=== PATIENT | female | born 1990 | race Caucasian/White ===

== ENCOUNTER 2016-10-07 15:23 | Inpatient (IN) | payer OTHER ==
[2016-10-07 15:44] LABS: BASOPHILS % 0.6 (0.0-1.5); EOSINOPHILS % 2.8 % (0.0-6.8); MEAN CORPUSCULAR HEMOGLOBIN 31.2 pg (28.0-34.0); MEAN CORPUSCULAR VOLUME 90.3 fl (80.0-100.0); MONOCYTES % 6.6 % (0.0-11.0); NEUTROPHILS # 5.7 # k/uL (1.4-7.7)
[2016-10-07] MEDS ORDERED: 0.9 % SODIUM CHLORIDE 1,000 ML IV SCH (16:00)
[2016-10-07 16:01] LABS: eGFR (African) > 60; eGFR (Non-African) > 60
[2016-10-07 16:09] LABS: APPEARANCE,URINE Clear (CLEAR); COLOR,URINE Yellow (YELLOW); OCCULT BLOOD,URINE 2+ (NEGATIVE); PH URINE 6.5 (5.0 - 8.0)
[2016-10-07 16:11] LABS: AMPHETAMINE NEGATIVE ng/mL (<1000); BARBITURATES NEGATIVE ng/mL (<300); CANNABINOIDS NEGATIVE ng/mL (< 50); COCAINE NEGATIVE ng/mL (<150); METHAMPHETAMINE NEGATIVE ng/mL (<1000); METHYLENEDIOXYMETHAMPHETAMINE NEGATIVE ng/mL (<500); OPIATES NEGATIVE ng/mL (<300)
[2016-10-07] MEDS ORDERED: 0.9 % SODIUM CHLORIDE 1,000 ML IV ONE ×2 (16:36→19:30)
[2016-10-07] MEDS ORDERED: LEVOFLOXACIN 500MG/D5W 100ML 500 MG in PREMIX BAG 1 BAG IV ONE (17:53)
[2016-10-07] MEDS ORDERED: IPRATROPIUM/ALBUTEROL SULFATE 3 ML AMPUL.NEB NEB ONE (17:53)
[2016-10-07] MEDS ORDERED: LEVOFLOXACIN 500MG/D5W 100ML 100 ML IV ONE (18:14)
--- NOTE | 2016-10-07 18:59 | Diagnostic Imaging Report ---
MARK ROJAS [facility] [address] [facility].[address] [address] Report Submission Date: Oct 07, 2016 5:23:00 PM CDT Patient Study Name: ALONDRA HAIRSTON Date: Oct 07, 2016 5:02:09 PM CDT Modality Type: CR Gender: F Description: CHEST : 88 Institution: [facility] Physician: MARK ROJAS Examination: Portable chest History: Chest discomfort Findings: Single view of the chest demonstrates a hypoventilated inspiratory effort. Increased parenchymal haziness involving the lower lung quinonez. Osseous structures appropriate for age. Impression: Bibasilar hazy infiltrates. Recommend obtaining formal PA and lateral film to better evaluate lung quinonez. Electronically signed on Oct 07, 2016 5:23:00 PM CDT by: Jacob DEL CID
--- NOTE | 2016-10-07 19:00 | Diagnostic Imaging Report ---
MARK ROJAS [facility] [address] [facility] [address] [place], [place]. [address] Report Submission Date: Oct 07, 2016 5:27:36 PM CDT Patient Study Name: ALONDRA HAIRSTON Date: Oct 07, 2016 4:51:08 PM CDT Modality Type: CT\SR Gender: F Description: CT BRAIN W/O CONTRAST : 88 Institution: [facility] Physician: MARK ROJAS Examination: CT head without contrast History: Syncope Comparison exam: None available Technique: Noncontrast head CT protocol. Findings: Exam attenuation limits sensitivity. Ventricles mildly prominent for patient age. Cerebrocerebellar parenchyma demonstrates normal attenuation. No evidence for parenchymal hemorrhage. No evidence for mass or mass effect. No midline shift. No extra axial fluid collections. Partial visualization of the paranasal sinuses, mastoid air cells, orbits, skull and scalp without gross irregularity. Streak artifact from dental hardware. Impression: Mildly prominent ventricles for age. Correlate with any underlying medical condition and previous examinations. No obvious acute parenchymal process though exam attenuation limits sensitivity. No obvious hemorrhage. Electronically signed on Oct 07, 2016 5:27:36 PM CDT by: Jacob DEL CID
--- NOTE | 2016-10-07 19:01 | Diagnostic Imaging Report ---
MARK ROJAS [facility] [address] [facility] [address] [place], [place]. [address] Report Submission Date: Oct 07, 2016 5:36:42 PM CDT Patient Study Name: ALONDRA HAIRSTON Date: Oct 07, 2016 4:55:44 PM CDT Modality Type: CT\SR Gender: F Description: CT ABD & PELVIS W/O CO : 88 Institution: [facility] Physician: MARK ROJAS Examination: CT Abdomen/pelvis History: Right flank discomfort Comparison exams: None available Technique: CT Abdomen/pelvis without contrast protocol. Findings: Renal cortical margins are symmetric. No cortical or calyceal calcification. Ureters described a normal course through the abdomen and pelvis. No abnormal dilation. No central calcifications. Ureterovesicular junctions are within normal limits. Pelvic phleboliths. Liver, spleen, adrenals, and pancreas are without gross irregularity. Gallbladder not well visualized: presumably contracted. Bowel unopacified limiting evaluation. No mesenteric inflammatory changes or free fluid. Significant stool throughout the large bowel. No small bowel dilation. Possible appendix identified within the right lower quadrant, no adjacent inflammation. Sensitivity is reduced due to patient motion and lack of oral contrast. Osseous structures demonstrate degenerative changes. Lung bases demonstrate bibasilar hazy infiltrates. No effusion Impression: No nephro or ureterolithiasis. Remainder of the exam is limited due to patient motion and lack of IV and oral contrast. No obvious bowel dilation or mesenteric inflammatory process. Stool throughout the large bowel - may represent constipation. Bibasilar lung base infiltrates Electronically signed on Oct 07, 2016 5:36:42 PM CDT by: Jacob DEL CID
--- NOTE | 2016-10-07 19:09 | History and Physical Report ---
History of Present Illnes - History of Present Illness Reason for Visit: "Out of it" History of Present Illness: Patient was brought to ER by her Care Home Staff after an episode of "being out of it". Seemed unresponsive. In the ER found to be hypoxic with bilateral infiltrates. Patient tells me she has felt fine the past few days and has no complaints. Patient has MR and is somewhat unreliable. Spends most of the days watching TV. CT of head and abdomen/pelvis were negative in the ER. - Past Medical History Pulmonary: Asthma [employer]: Other (Tremor) Gastrointestinal: GERD Psych: Anxiety, Bipolar, Depression, Other (ADHD; PTSD; Mental retardation; Psychosis; Personality D/O) Renal/: Other (incontinence) Endocrine: Hypothyroidism - Past Surgical History Past Surgical History: None - Past Social History Smoke: No Alcohol: None Lives: Other ([facility] in [facility]) - Health Maintenance Health Maintenance: Influenza Vaccine Influenza Vaccine: Current for this Influenza Season Pneumonia Vaccine: No Resuscitation Status: Full Review of Systems - Review of Systems Constitutional: Fever. negative: Weakness Eyes: negative: pain ENT: negative: Ear Pain, Nose Discharge, Mouth Pain Respiratory: negative: Cough, Shortness of Breath Cardiovascular: negative: Chest Pain Gastrointestinal: negative: Nausea, Vomiting, Abdominal Pain, Constipation Genitourinary: negative: Dysuria Musculoskeletal: negative: Neck Pain Skin: negative: Rash Neurological: negative: Weakness - Medications/Allergies Allergies/Adverse Reactions: Allergies Allergy/AdvReac Type Severity Reaction Status Date / Time bee venom (honey bee) Allergy Verified 10/07/16 15:54 cefaclor [From Ceclor] Allergy Verified 10/07/16 15:53 Penicillins Allergy Verified 10/07/16 15:54 shellfish derived Allergy Verified 10/07/16 15:54 Home Medications: Home Medications Albuterol Sulfate [Ventolin] 2 puff IN QID PRN 10/07/16 Benztropine Mesylate [Cogentin] 1 mg PO D 10/07/16 Citalopram Hydrobromide [Celexa] 10 mg PO DAILY 10/07/16 Desmopressin Acetate [Ddavp] 0.1 mg PO DAILY 10/07/16 Divalproex Sodium [Depakote] 1,500 mg PO HS 10/07/16 Docusate Sodium [Colace] 100 mg PO DAILY PRN 10/07/16 Epinephrine [Epipen 2-Sonido] 0.3 mg SQ 1T PRN 10/07/16 Levothyroxine Sodium [Synthroid] 125 mcg PO DAILY 10/07/16 Medroxyprogesterone Acetate [Depo-Provera] 150 mg IM Q3M 10/07/16 Multivits W-Min/Ferrous Gluc [Centrum Multivit-Mineral Liq] 1 tab PO DAILY 10/07 Olanzapine [Zyprexa] 20 mg PO HS 10/07/16 Oxybutynin Chloride [Ditropan] 1 tab PO DAILY PRN 10/07/16 Polyethylene Glycol 3350 [Miralax] 17 gm PO DAILY 10/07/16 Ranitidine HCl [Zantac] 150 mg PO DAILY 10/07/16 Risperidone [Risperdal] 3 mg PO BID 10/07/16 Current Inpatient Medications: Current Inpatient Medications Budesonide (Pulmicort) 0.5 mg NEB BID [facility] Sodium Chloride (Normal Saline) 1,000 mls @ 1,000 mls/hr IV .Q1H WANDY Last Admin: 10/07/16 16:20 Dose: 1,000 mls/hr Exam - Exam Vital Signs: Vital Signs (72 hours) 10/07/16 18:36 Temperature 99.9 F H Pulse Rate [ 95 H Pulse ox] Respiratory 20 Rate Blood Pressure 118/82 [Left Arm] O2 Sat by Pulse 95 Oximetry General: Alert, Oriented to Person, Oriented to Place, Oriented to Time, Cooperative, No acute distress HEENT: Atraumatic, PERRLA, EOMI, Nose Mucous membr. moist/Mccaskill. No: Mouth Mucous membr. moist/Mccaskill Neck: Normal Range of Motion Lungs: Rhonchi Cardiovascular: Regular rate Abdomen: Normal bowel sounds, Soft, No tenderness Integumentary: Normal Extremities: No edema Neurological: Normal gait, Normal speech, Strength Equal Bilat, Cranial nerves 3 -12 NL Psych/Mental Status: No: Mental status NL, Mood NL, Appropriate Affect, Intact Judgment Assessment/Plan - Assessment/Plan (1) Bilateral pneumonia Status: Acute Current Visit: Yes Qualifiers: Pneumonia type: due to unspecified organism Lung location: lower lobe of lung Qualified Code(s): J18.9 - Pneumonia, unspecified organism Plan: Blood cultures pending. Admit for IV antibiotics with rocephin and zithromax. Duonebs and O2 to keep SATS > 90%. (2) Mental retardation Status: Acute Current Visit: Yes Plan: STable. (3) Hypoxia Status: Acute Current Visit: Yes (4) Mental status change Status: Acute Current Visit: Yes Qualifiers: Altered mental status type: transient alteration of awareness Qualified Code(s): R40.4 - Transient alteration of awareness Plan: Suspect due to illness. Watch closely. (5) Asthma Status: Acute Current Visit: Yes Qualifiers: Asthma severity: mild intermittent Asthma complication type: uncomplicated Qualified Code(s): J45.20 - Mild intermittent asthma, uncomplicated Plan: Only uses albuterol prn. No wheezing on exam (had duoneb in ER). Do scheduled duonebs. VTE Assessment - RISK FACTOR SCORE VTE RISK FACTOR SCORES: ACUTE INFECTION OTHER THEN SEPSIS, ANTICIPATED BED CONFINEMENT OR IMMOBILIZATION > 24 HOURS - RISK VTE MODERATE RISK: SCORE OF 2 (RISK PROXIMAL DVT 2-4%) PROPHYAXIS NEEDED
[2016-10-07] MEDS ORDERED: DOCUSATE SODIUM 100 MG CAPSULE PO PRN (19:10)
[2016-10-07] MEDS ORDERED: IPRATROPIUM/ALBUTEROL SULFATE 3 ML AMPUL.NEB NEB PRN (19:10)
[2016-10-07] MEDS ORDERED: OXYBUTYNIN CHLORIDE 5 MG TABLET PO PRN (19:10)
[2016-10-07] MEDS ORDERED: AZITHROMYCIN 500 MG VIAL IV ONE (19:30)
[2016-10-07] MEDS: 0.9 % SODIUM CHLORIDE 1,000 ML IV SCH (19:30)
[2016-10-07] MEDS ORDERED: 0.9 % SODIUM CHLORIDE 250 ML IV ONE (19:30)
[2016-10-07] MEDS: AZITHROMYCIN 500 MG in 0.9 % SODIUM CHLORIDE 250 ML IV SCH (19:40)
[2016-10-07] MEDS ORDERED: LEVOTHYROXINE SODIUM 25 MCG TABLET ONE (19:50)
[2016-10-07] MEDS: ENOXAPARIN SODIUM 40 MG/0.4 ML DISP.SYRIN SQ SCH (20:48)
[2016-10-07] MEDS ORDERED: BUDESONIDE 0.5MG/2ML AMPUL.NEB NEB SCH (21:00)
--- NOTE | 2016-10-07 21:07 | ED Physician Documentation ---
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, has been soa at facility Onset: minutes (30) Duration: sudden onset Last known Well Date: 10/07/16 Last Known Well Time: 15:25 Last known Well Code/Unknown Code: Unknown Character of Altered Mental Status: unresponsive, other (staring) Context: senior living resident Cognition is Usually: alert, oriented x3 Associated Symptoms: none Further Comments: no - ROS EYES/ENT: none CVS/RESP: none GI/: none MS/SKIN/LYMPH: none NEURO/PSYCH: none - PAST HX Past History: other (mr) Other History: other (depression, gerd) Immunizations: referred to PCP Allergies/Adverse Reactions: Allergies Allergy/AdvReac Type Severity Reaction Status Date / Time bee venom (honey bee) Allergy Verified 10/07/16 15:54 cefaclor [From Ceclor] Allergy Verified 10/07/16 15:53 Penicillins Allergy Verified 10/07/16 15:54 shellfish derived Allergy Verified 10/07/16 15:54 Home Medications: Ambulatory Orders Medication Instructions Recorded Albuterol Sulfate [Ventolin] 2 puff IN QID PRN 10/07/16 Benztropine Mesylate [Cogentin] 1 mg PO D 10/07/16 Citalopram Hydrobromide [Celexa] 10 mg PO DAILY 10/07/16 Desmopressin Acetate [Ddavp] 0.1 mg PO DAILY 10/07/16 Divalproex Sodium [Depakote] 1,500 mg PO HS 10/07/16 Docusate Sodium [Colace] 100 mg PO DAILY PRN 10/07/16 Epinephrine [Epipen 2-Sonido] 0.3 mg SQ 1T PRN 10/07/16 Levothyroxine Sodium [Synthroid] 125 mcg PO DAILY 10/07/16 Medroxyprogesterone Acetate 150 mg IM Q3M 10/07/16 [Depo-Provera] Multivits W-Min/Ferrous Gluc 1 tab PO DAILY 10/07/16 [Centrum Multivit-Mineral Liq] Olanzapine [Zyprexa] 20 mg PO HS 10/07/16 Oxybutynin Chloride [Ditropan] 1 tab PO DAILY PRN 10/07/16 Polyethylene Glycol 3350 [Miralax] 17 gm PO DAILY 10/07/16 Ranitidine HCl [Zantac] 150 mg PO DAILY 10/07/16 Risperidone [Risperdal] 3 mg PO BID 10/07/16 - SOCIAL HX Smoking History: non-smoker Alcohol Use: none Drug Use: none - FAMILY HX Family History: no significant history - VITAL SIGNS Vital Signs: Vital Signs Temp Pulse Resp BP Pulse Ox 99.9 F H 95 H 20 118/82 95 10/07/16 18:36 10/07/16 18:36 10/07/16 18:36 10/07/16 18:36 10/07/16 18:36 - REVIEWED ASSESSMENTS Nursing Assessment Reviewed: Yes Vitals Reviewed: Yes Progress - Results/Orders Results/Orders: cbc, cmp, amylase, ua, uds, hcg, cxr, ct abd ordered - Progress Progress: pt. given 1 liter ns, blood cults taken and 500 mg levaquin give ivpb Critical Care Note - Critical Care Note Total Time (mins): 0 ED Results Lab/Radiology - Lab Results Lab Results: Lab Results 10/07/16 10/07/16 10/07/16 16:35 16:05 16:05 WBC RBC Hgb Hct MCV MCH MCHC RDW Plt Count Neut % (Auto) Lymph % (Auto) [place] % (Auto) Eos % (Auto) Baso % (Auto) Neut # (Auto) Lymph # (Auto) [place] # (Auto) Eos # (Auto) Baso # (Auto) Reactive Lymphs % Reactive Lymphs # Sodium Potassium Chloride Carbon Dioxide BUN Creatinine Estimated Creat Clear Est GFR ( Amer) Est GFR (Non-Af Amer) Glucose Calcium Total Bilirubin AST ALT Alkaline Phosphatase Total Protein Albumin Amylase Urine Color Yellow (YELLOW) Urine Appearance Clear (CLEAR) Urine pH 6.5 (5.0 - 8.0) Ur Specific [place] >=1.030 H (1.010-1.030) Urine Protein Negative mg/dL mg/dL (NEGATIVE) Urine Ketones Negative mg/dL mg/dL (NEGATIVE) Urine Occult Blood 2+ H (NEGATIVE) Urine Nitrite Positive (NEGATIVE) Urine Bilirubin Negative (NEGATIVE) Urine Urobilinogen 1.0 Eu Eu (0.2-1.0) Ur Leukocyte Esterase 1+ H (NEGATIVE) Urine Glucose Negative mg/dL mg/dL (NEGATIVE) Urine HCG, Qual Negative (NEGATIVE) Morphine Screen Negative ng/mL ng/mL (<300) Oxycodone Screen Negative ng/mL ng/mL (<100) Methadone Screen Negative ng/mL ng/mL (<300) POC Urine Barbiturates Negative ng/mL ng/mL (<300) Tricyclic Antidepress Negative ng/mL ng/mL (<300) Phencyclidine Screen Negative ng/mL ng/mL (<25) Amphetamines Screen Negative ng/mL ng/mL (<1000) POC Ur Methamphetamine Negative ng/mL ng/mL (<1000) MDMA Negative ng/mL ng/mL (<500) Benzodiazepines Screen Negative ng/mL ng/mL (<300) Cocaine Screen Negative ng/mL ng/mL (<150) U Cannabinoids Screen Negative ng/mL ng/mL (< 50) 10/07/16 10/07/16 15:40 15:40 WBC 9.60 K/ul K/ul (4.00-12.00) RBC 4.50 M/ul M/ul (3.90-5.20) Hgb 14.0 g/dL g/dL (12.0-16.0) Hct 40.6 % % (34.5-46.5) MCV 90.3 fl fl (80.0-100.0) MCH 31.2 pg pg (28.0-34.0) MCHC 34.5 g/dL g/dL (30.0-36.0) RDW 13.9 % % (11.3-14.3) Plt Count 141 K/mm3 K/mm3 (130-400) Neut % (Auto) 58.9 % % (39.0-79.0) Lymph % (Auto) 29.6 % % (16.0-50.0) [place] % (Auto) 6.6 % % (0.0-11.0) Eos % (Auto) 2.8 % % (0.0-6.8) Baso % (Auto) 0.6 (0.0-1.5) Neut # (Auto) 5.7 # k/uL # k/uL (1.4-7.7) Lymph # (Auto) 2.8 # k/uL # k/uL (0.6-4.0) [place] # (Auto) 0.6 # k/uL # k/uL (0.0-0.9) Eos # (Auto) 0.3 # k/uL # k/uL (0.0-0.6) Baso # (Auto) 0.1 # k/uL # k/uL (0.0-0.5) Reactive Lymphs % 1.5 % % (0.0-5.0) Reactive Lymphs # 0.1 # k/uL # k/uL (0.0-0.8) Sodium 136 mmol/L mmol/L (136-145) Potassium 3.7 mmol/L mmol/L (3.5-5.0) Chloride 102 mmol/L mmol/L (98-110) Carbon Dioxide 28 mmol/L mmol/L (20-32) BUN 11 mg/dL mg/dL (10-26) Creatinine 0.7 mg/dL mg/dL (0.4-1.5) Estimated Creat Clear 227 Est GFR ( Amer) > 60 (60 - ) Est GFR (Non-Af Amer) > 60 (60 - ) Glucose 112 mg/dL H mg/dL (70-99) Calcium 9.2 mg/dL mg/dL (8.5-10.5) Total Bilirubin 0.1 mg/dL L mg/dL (0.2-1.2) AST 18 U/L U/L (0-41) ALT 25 U/L U/L (0-45) Alkaline Phosphatase 64 U/L U/L (46-116) Total Protein 6.2 g/dL g/dL (6.0-8.5) Albumin 4.2 g/dL g/dL (3.0-5.5) Amylase 31 U/L U/L (20-104) Urine Color Urine Appearance Urine pH Ur Specific [place] Urine Protein Urine Ketones Urine Occult Blood Urine Nitrite Urine Bilirubin Urine Urobilinogen Ur Leukocyte Esterase Urine Glucose Urine HCG, Qual Morphine Screen Oxycodone Screen Methadone Screen POC Urine Barbiturates Tricyclic Antidepress Phencyclidine Screen Amphetamines Screen POC Ur Methamphetamine MDMA Benzodiazepines Screen Cocaine Screen U Cannabinoids Screen - Radiology Radiology Impressions: cxr shows bibasilar infiltrates, ct abd unremarkable - Orders Orders: ED Orders Category Date Time Status Activity as ordered D Care 10/07/16 19:10 Active Assess pulse oximetry Q4H Care 10/07/16 19:10 Active Continuous EKG monitoring Q1H Care 10/07/16 19:10 Active Document Bowel Movement Q8H Care 10/07/16 19:[address] Longoria NOW Care 10/07/16 19:10 Ordered Incentive Spirometry Assessmen Q4 Care 10/07/16 19:10 Active Inpatient Telemetry NOW Care 10/07/16 19:10 Ordered No VTE Prophylaxis Needed .Once Care 10/07/16 19:10 Active Obtain weight DAILY@0500 Care 10/07/16 19:[address] IV Lock 1T Care 10/07/16 15:39 Inactive Vital Signs Q4 Care 10/07/16 19:10 Active Regular Diet 10/07/16 Breakfast Ordered Regular Diet 10/07/16 Breakfast Ordered CHEST 1 VIEW [RAD] Routine Exams 10/07/16 Completed CHEST P.A.&LAT 2 VIEWS [RAD] Routine Exams 10/08/16 06:[address] ABD & PELVIS W/O CON Stat Exams 10/07/[address] BRAIN W/O CONTRAST Stat Exams 10/07/16 Completed AMYLASE Routine Lab 10/07/16 15:40 Completed BLOOD CULTURE Routine Lab 10/07/16 18:05 Received BMP Routine Lab 10/08/16 06:00 Ordered CBC/PLATELET/DIFF Routine Lab 10/07/16 15:40 Completed CBC/PLATELET/DIFF Routine Lab 10/08/16 06:00 Ordered CMP Routine Lab 10/07/16 15:40 Completed DRUG SCREEN URINE MEDICAL ONLY Routine Lab 10/07/16 16:05 Completed LACTIC ACID Routine Lab 10/07/16 18:05 Received URINALYSIS Routine Lab 10/07/16 16:05 Completed URINE CULTURE Routine Lab 10/07/16 16:05 Received URINE HCG Routine Lab 10/07/16 16:35 Completed 0.9 % Sodium Chloride [Normal Saline] 1,000 ml Med 10/07/16 16:00 Discontinued IV .Q1H 0.9 % Sodium Chloride [Normal Saline] 1,000 ml Med 10/07/16 19:10 Ordered IV Q10H Benztropine Mesylate [Cogentin] Med 10/08/16 09:00 Ordered 1 mg PO D Budesonide [Pulmicort] Med 10/07/16 21:00 Discontinued 0.5 mg NEB BID Citalopram Hydrobromide [Celexa] Med 10/08/16 09:00 Ordered 10 mg PO DAILY Desmopressin Acetate [Ddavp] Med 10/08/16 09:00 Ordered 0.1 mg PO DAILY Docusate Sodium [Colace] Med 10/07/16 19:10 Ordered 100 mg PO DAILY PRN Famotidine [Pepcid] Med 10/08/16 07:00 Ordered 20 mg PO 0700 Ipratropium/Albuterol Sulfate [Duoneb] Med 10/07/16 17:53 Discontinued 3 ml NEB NOW ONE Ipratropium/Albuterol Sulfate [Duoneb] Med 10/07/16 19:10 Ordered 3 ml NEB Q4 PRN Levofloxacin 500Mg/D5w 100Ml [Levaquin] 100 ml Med 10/07/16 18:14 Discontinued IV .STK-MED Levofloxacin 500Mg/D5w 100Ml [Levaquin] 500 mg Med 10/08/16 09:00 Ordered Premix Bag [Premix Fluid] 1 bag IV DAILY Levofloxacin 500Mg/D5w 100Ml [Levaquin] 500 mg Med 10/07/16 17:53 Discontinued Premix Bag [Premix Fluid] 1 bag IV NOW Levothyroxine Sodium [Synthroid] Med 10/08/16 07:00 Ordered 125 mcg PO 0700 Multivitamin [Tab-A-Ronaldo] Med 10/08/16 09:00 Ordered 1 each PO DAILY OLANZapine [Zyprexa] Med 10/07/16 21:00 Ordered 2.5 mg PO HS Oxybutynin Chloride [Ditropan] Med 10/07/16 19:10 Ordered DOSE mg PO DAILY PRN Polyethylene Glycol 3350 [Miralax] Med 10/08/16 09:00 Ordered 17 gm PO DAILY Valproic Acid (As Sodium Salt) [Depakene] Med 10/07/16 21:00 Ordered 1,500 mg PO PM risperiDONE [Risperdal] Med 10/07/16 21:00 Ordered 3 mg PO BID Resuscitation Status Routine Oth 10/07/16 19:10 Ordered Oxygen Daily Oxygen 10/07/16 19:10 Ordered EKG WITH COMPARISON Routine Ther 10/07/16 Stop Req Transfer Routine Transfer 10/07/16 Completed Altered Mental Status Physical - Physical Exam General Appearance: alert, mild distress Neuro/Psych: none alert, oriented x3, no evidence of acute CVA, mood/affect nml nml as tested Cerebellar Exam: nml as tested Peripheral Exam: motor nml, sensation nml, reflexes nml HEENT: ADWOA, EOM's intact, no apparent trauma, ENT inspection nml, oropharynx nml Neck: normal inspection, thyroid normal, supple Respiratory: no resp distress, chest non-tender, rales (bases) CVS: reg rate & rhythm, heart sounds normal, equal pulses, no murmur, no gallop , PMI nml, no JVD Abdomen: non-tender, no organomegaly, nml bowel sounds, no distention Skin: warm/dry, normal color Extremities: non-tender, normal range of motion Discharge Clincal Impression: Pneumonia Qualifiers: Pneumonia type: due to unspecified organism Laterality: bilateral Lung location : lower lobe of lung Qualified Code(s): J18.9 - Pneumonia, unspecified organism Home Medications: Ambulatory Orders Albuterol Sulfate [Ventolin] 2 puff IN QID PRN 10/07/16 Benztropine Mesylate [Cogentin] 1 mg PO D 10/07/16 Citalopram Hydrobromide [Celexa] 10 mg PO DAILY 10/07/16 Desmopressin Acetate [Ddavp] 0.1 mg PO DAILY 10/07/16 Divalproex Sodium [Depakote] 1,500 mg PO HS 10/07/16 Docusate Sodium [Colace] 100 mg PO DAILY PRN 10/07/16 Epinephrine [Epipen 2-Sonido] 0.3 mg SQ 1T PRN 10/07/16 Levothyroxine Sodium [Synthroid] 125 mcg PO DAILY 10/07/16 Medroxyprogesterone Acetate [Depo-Provera] 150 mg IM Q3M 10/07/16 Multivits W-Min/Ferrous Gluc [Centrum Multivit-Mineral Liq] 1 tab PO DAILY 10/07 Olanzapine [Zyprexa] 20 mg PO HS 10/07/16 Oxybutynin Chloride [Ditropan] 1 tab PO DAILY PRN 10/07/16 Polyethylene Glycol 3350 [Miralax] 17 gm PO DAILY 10/07/16 Ranitidine HCl [Zantac] 150 mg PO DAILY 10/07/16 Risperidone [Risperdal] 3 mg PO BID 10/07/16 Comments: case discussed with Dr. Longoria who accepts admission Condition: Stable Disposition: 09 ADMITTED INPATIENT Decision to Admit: [id number] Decision Time: 18:35
[2016-10-07 21:24] VITALS: BMI 47.2
[2016-10-07] MEDS: VALPROIC ACID (AS SODIUM SALT) 250 MG/5 ML BOTTLE PO SCH (22:05)
[2016-10-07] MEDS: risperiDONE 0.5 MG TABLET PO SCH (22:10)
[2016-10-07] MEDS: OLANZapine 5 MG TABLET PO SCH (22:10)
[2016-10-08] MEDS: LEVOTHYROXINE SODIUM 100 MCG TABLET PO SCH (06:06)
[2016-10-08] MEDS: FAMOTIDINE 20 MG TABLET PO SCH (06:06)
[2016-10-08 06:08] LABS: BASOPHILS % 0.5 (0.0-1.5); EOSINOPHILS % 2.1 % (0.0-6.8); MEAN CORPUSCULAR HEMOGLOBIN 30.5 pg (28.0-34.0); MEAN CORPUSCULAR VOLUME 91.6 fl (80.0-100.0); MONOCYTES % 6.4 % (0.0-11.0); NEUTROPHILS # 3.8 # k/uL (1.4-7.7)
[2016-10-08 06:30] LABS: eGFR (African) > 60; eGFR (Non-African) > 60
--- NOTE | 2016-10-08 07:06 | Diagnostic Imaging Report ---
MARK ROJAS [facility] [address] [facility] [address] [place], [place]. [address] Report Submission Date: Oct 08, 2016 6:59:11 AM CDT Patient Study Name: ALONDRA HAIRSTON Date: Oct 08, 2016 6:33:48 AM CDT Modality Type: CR Gender: F Description: CHEST : 88 Institution: [facility] Physician: MARK ROJAS Examination: PA and lateral chest. History: Evaluate lung quinonez. Comparison exam: 07 October 2016 Findings: PA lateral chest demonstrate a normal cardiac and mediastinal silhouette. Bibasilar hazy infiltrates. No blunting of the costophrenic margins. Osseous structures are appropriate for age. Impression: Continued bibasilar infiltrates without gross effusion. Electronically signed on Oct 08, 2016 6:59:11 AM CDT by: Jacob DEL CID
--- NOTE | 2016-10-08 07:56 | Inpatient Progress Note ---
Subjective - Required Recertification Statement I anticipate X number of days because-include discharge plan: 2 - Review of Systems Subjective: Patient reports she feels better today but appears more tachypneic. Asks for 2nds on biscuits and gravy. Objective - Exam Vitals and I&O: Vital Signs Temp 99.6 F 10/08/16 06:00 Pulse 100 H 10/08/16 06:00 Resp 20 10/08/16 06:00 BP 132/81 10/08/16 06:00 Pulse Ox 94 10/08/16 06:00 Intake & Output 10/07/16 10/07/16 10/08/16 11:59 23:59 11:59 Intake Total 850 Balance 850 Weight 109.588 kg Intake: IV 850 Right Antecubital 850 Other: Voiding Method Incontinent # Voids 3 General: Alert, Oriented to Person, Oriented to Place, Oriented to Time, Cooperative, Mild distress Lungs: Respiratory Distress (mild tachypnea), Rhonchi Cardiovascular: Regular rate - Results Results: Laboratory Results WBC 6.80 K/ul (4.00-12.00) 10/08/16 06:00 RBC 4.31 M/ul (3.90-5.20) 10/08/16 06:00 Hgb 13.2 g/dL (12.0-16.0) 10/08/16 06:00 Hct 39.5 % (34.5-46.5) 10/08/16 06:00 MCV 91.6 fl (80.0-100.0) 10/08/16 06:00 MCH 30.5 pg (28.0-34.0) 10/08/16 06:00 MCHC 33.3 g/dL (30.0-36.0) 10/08/16 06:00 RDW 14.1 % (11.3-14.3) 10/08/16 06:00 Plt Count 130 K/mm3 (130-400) 10/08/16 06:00 Neut % (Auto) 56.2 % (39.0-79.0) 10/08/16 06:00 Lymph % (Auto) 32.9 % (16.0-50.0) 10/08/16 06:00 [place] % (Auto) 6.4 % (0.0-11.0) 10/08/16 06:00 Eos % (Auto) 2.1 % (0.0-6.8) 10/08/16 06:00 Baso % (Auto) 0.5 (0.0-1.5) 10/08/16 06:00 Neut # (Auto) 3.8 # k/uL (1.4-7.7) 10/08/16 06:00 Lymph # (Auto) 2.2 # k/uL (0.6-4.0) 10/08/16 06:00 [place] # (Auto) 0.4 # k/uL (0.0-0.9) 10/08/16 06:00 Eos # (Auto) 0.2 # k/uL (0.0-0.6) 10/08/16 06:00 Baso # (Auto) 0.0 # k/uL (0.0-0.5) 10/08/16 06:00 Reactive Lymphs % 1.9 % (0.0-5.0) 10/08/16 06:00 Reactive Lymphs # 0.1 # k/uL (0.0-0.8) 10/08/16 06:00 Sodium 148 mmol/L (136-145) H 10/08/16 06:00 Potassium 4.0 mmol/L (3.5-5.0) 10/08/16 06:00 Chloride 114 mmol/L (98-110) H 10/08/16 06:00 Carbon Dioxide 28 mmol/L (20-32) 10/08/16 06:00 BUN 8 mg/dL (10-26) L 10/08/16 06:00 Creatinine 0.6 mg/dL (0.4-1.5) 10/08/16 06:00 Estimated Creat Clear 289 10/08/16 06:00 Est GFR ( Amer) > 60 (60-) 10/08/16 06:00 Est GFR (Non-Af Amer) > 60 (60-) 10/08/16 06:00 Glucose 105 mg/dL (70-99) H 10/08/16 06:00 Calcium 9.6 mg/dL (8.5-10.5) 10/08/16 06:00 Total Bilirubin 0.1 mg/dL (0.2-1.2) L 10/07/16 15:40 AST 18 U/L (0-41) 10/07/16 15:40 ALT 25 U/L (0-45) 10/07/16 15:40 Alkaline Phosphatase 64 U/L (46-116) 10/07/16 15:40 Total Protein 6.2 g/dL (6.0-8.5) 10/07/16 15:40 Albumin 4.2 g/dL (3.0-5.5) 10/07/16 15:40 Amylase 31 U/L (20-104) 10/07/16 15:40 Urine Color Yellow (YELLOW) 10/07/16 16:05 Urine Appearance Clear (CLEAR) 10/07/16 16:05 Urine pH 6.5 (5.0 - 8.0) 10/07/16 16:05 Ur Specific [place] >=1.030 (1.010-1.030) H 10/07/16 16:05 Urine Protein Negative mg/dL (NEGATIVE) 10/07/16 16:05 Urine Ketones Negative mg/dL (NEGATIVE) 10/07/16 16:05 Urine Occult Blood 2+ (NEGATIVE) H 10/07/16 16:05 Urine Nitrite Positive (NEGATIVE) 10/07/16 16:05 Urine Bilirubin Negative (NEGATIVE) 10/07/16 16:05 Urine Urobilinogen 1.0 Eu (0.2-1.0) 10/07/16 16:05 Ur Leukocyte Esterase 1+ (NEGATIVE) H 10/07/16 16:05 Urine Glucose Negative mg/dL (NEGATIVE) 10/07/16 16:05 Urine HCG, Qual Negative (NEGATIVE) 10/07/16 16:35 Morphine Screen Negative ng/mL (<300) 10/07/16 16:05 Oxycodone Screen Negative ng/mL (<100) 10/07/16 16:05 Methadone Screen Negative ng/mL (<300) 10/07/16 16:05 POC Urine Barbiturates Negative ng/mL (<300) 10/07/16 16:05 Tricyclic Antidepress Negative ng/mL (<300) 10/07/16 16:05 Phencyclidine Screen Negative ng/mL (<25) 10/07/16 16:05 Amphetamines Screen Negative ng/mL (<1000) 10/07/16 16:05 POC Ur Methamphetamine Negative ng/mL (<1000) 10/07/16 16:05 MDMA Negative ng/mL (<500) 10/07/16 16:05 Benzodiazepines Screen Negative ng/mL (<300) 10/07/16 16:05 Cocaine Screen Negative ng/mL (<150) 10/07/16 16:05 U Cannabinoids Screen Negative ng/mL (< 50) 10/07/16 16:05 Assessment/Plan - Assessment/Plan (1) Bilateral pneumonia Status: Acute Current Visit: Yes Qualifiers: Pneumonia type: due to unspecified organism Lung location: lower lobe of lung Qualified Code(s): J18.9 - Pneumonia, unspecified organism Plan: CXR unchanged today. Will increase IS to q1hr. Cont. IV antibiotics, duonebs, and O2. (2) Mental retardation Status: Acute Current Visit: Yes (3) Hypoxia Status: Acute Current Visit: Yes (4) Mental status change Status: Acute Current Visit: Yes Qualifiers: Altered mental status type: transient alteration of awareness Qualified Code(s): R40.4 - Transient alteration of awareness (5) Asthma Status: Acute Current Visit: Yes Qualifiers: Asthma severity: mild intermittent Asthma complication type: uncomplicated Qualified Code(s): J45.20 - Mild intermittent asthma, uncomplicated Plan: Even though she doesn't have many wheezes due to her tachypnea will do low dose IV steroids. CT of chest to r/o PE.
[2016-10-08] MEDS: CITALOPRAM HYDROBROMIDE 20 MG TABLET PO SCH (08:25)
[2016-10-08] MEDS: risperiDONE 0.5 MG TABLET PO SCH ×2 (08:26→20:02)
[2016-10-08] MEDS: DESMOPRESSIN 0.2 MG PO SCH (08:26)
[2016-10-08] MEDS: MULTIVITAMIN 1 EACH TABLET PO SCH (08:28)
[2016-10-08] MEDS: POLYETHYLENE GLYCOL 3350 17 GM POWD.PACK PO SCH (08:29)
[2016-10-08] MEDS: 0.9 % SODIUM CHLORIDE 1,000 ML IV SCH (08:30)
[2016-10-08] MEDS: SODIUM CHLORIDE 0.45 % 1,000 ML IV SCH (08:31)
[2016-10-08] MEDS ORDERED: SALINE FLUSH 10 ML DISP.SYRIN IVF ONE (08:36)
[2016-10-08] MEDS ORDERED: LEVOFLOXACIN 500MG/D5W 100ML 100 ML IV ONE (08:37)
[2016-10-08] MEDS: methylPREDNISolone SOD SUCC 40 MG/ML VIAL IVP SCH ×2 (08:42→21:50)
[2016-10-08] MEDS: LEVOFLOXACIN 500MG/D5W 100ML 500 MG in PREMIX BAG 1 BAG IV SCH (08:45)
[2016-10-08] MEDS: IPRATROPIUM/ALBUTEROL SULFATE 3 ML AMPUL.NEB NEB SCH ×4 (09:45→21:48)
[2016-10-08] MEDS: BENZTROPINE MESYLATE 0.5 MG TAB PO SCH (10:50)
[2016-10-08] MEDS: ENOXAPARIN SODIUM 40 MG/0.4 ML DISP.SYRIN SQ SCH (19:56)
[2016-10-08] MEDS: AZITHROMYCIN 500 MG in 0.9 % SODIUM CHLORIDE 250 ML IV SCH (19:57)
[2016-10-08] MEDS: VALPROIC ACID (AS SODIUM SALT) 250 MG/5 ML BOTTLE PO SCH (19:59)
[2016-10-08] MEDS: OLANZapine 5 MG TABLET PO SCH (20:05)
[2016-10-09] MEDS: IPRATROPIUM/ALBUTEROL SULFATE 3 ML AMPUL.NEB NEB SCH ×5 (01:17→17:55)
[2016-10-09] MEDS ORDERED: LEVOFLOXACIN 500MG/D5W 100ML 100 ML IV ONE (01:59)
[2016-10-09] MEDS: SODIUM CHLORIDE 0.45 % 1,000 ML IV SCH ×3 (02:04→09:54)
[2016-10-09 06:49] LABS: eGFR (African) > 60; eGFR (Non-African) > 60
[2016-10-09] MEDS: FAMOTIDINE 20 MG TABLET PO SCH (07:12)
[2016-10-09] MEDS: LEVOTHYROXINE SODIUM 100 MCG TABLET PO SCH (07:13)
[2016-10-09] MEDS: CITALOPRAM HYDROBROMIDE 20 MG TABLET PO SCH (08:42)
[2016-10-09] MEDS: MULTIVITAMIN 1 EACH TABLET PO SCH (08:44)
[2016-10-09] MEDS: risperiDONE 0.5 MG TABLET PO SCH ×2 (08:44→20:40)
[2016-10-09] MEDS: DESMOPRESSIN 0.2 MG PO SCH (08:48)
--- NOTE | 2016-10-09 08:49 | Inpatient Progress Note ---
Subjective - Required Recertification Statement I anticipate X number of days because-include discharge plan: 2 - Review of Systems Subjective: Patient feeling better. Breathing is improved. Had a nightmare last night so slept poorly - very tired today. Objective - Exam Vitals and I&O: Vital Signs Temp 99.5 F 10/09/16 06:00 Pulse 100 H 10/09/16 06:00 Resp 18 10/09/16 06:00 BP 113/63 10/09/16 06:00 Pulse Ox 93 10/09/16 06:00 Intake & Output 10/08/16 10/08/16 10/09/16 11:59 23:59 11:59 Intake Total 2890 1200 3420 Output Total 2 Balance 2890 1200 3418 Weight 109.588 kg 109.769 kg Intake: IV 2650 1920 Right Antecubital 2650 1920 Oral 240 1200 1500 Output: Stool 2 Other: Voiding Method Incontinent Incontinent Incontinent # Voids 3 8 General: Alert, Oriented to Person, Oriented to Place, Oriented to Time, Cooperative, No acute distress Lungs: Rhonchi Cardiovascular: Regular rate - Results Results: Laboratory Results WBC 6.80 K/ul (4.00-12.00) 10/08/16 06:00 RBC 4.31 M/ul (3.90-5.20) 10/08/16 06:00 Hgb 13.2 g/dL (12.0-16.0) 10/08/16 06:00 Hct 39.5 % (34.5-46.5) 10/08/16 06:00 MCV 91.6 fl (80.0-100.0) 10/08/16 06:00 MCH 30.5 pg (28.0-34.0) 10/08/16 06:00 MCHC 33.3 g/dL (30.0-36.0) 10/08/16 06:00 RDW 14.1 % (11.3-14.3) 10/08/16 06:00 Plt Count 130 K/mm3 (130-400) 10/08/16 06:00 Neut % (Auto) 56.2 % (39.0-79.0) 10/08/16 06:00 Lymph % (Auto) 32.9 % (16.0-50.0) 10/08/16 06:00 [place] % (Auto) 6.4 % (0.0-11.0) 10/08/16 06:00 Eos % (Auto) 2.1 % (0.0-6.8) 10/08/16 06:00 Baso % (Auto) 0.5 (0.0-1.5) 10/08/16 06:00 Neut # (Auto) 3.8 # k/uL (1.4-7.7) 10/08/16 06:00 Lymph # (Auto) 2.2 # k/uL (0.6-4.0) 10/08/16 06:00 [place] # (Auto) 0.4 # k/uL (0.0-0.9) 10/08/16 06:00 Eos # (Auto) 0.2 # k/uL (0.0-0.6) 10/08/16 06:00 Baso # (Auto) 0.0 # k/uL (0.0-0.5) 10/08/16 06:00 Reactive Lymphs % 1.9 % (0.0-5.0) 10/08/16 06:00 Reactive Lymphs # 0.1 # k/uL (0.0-0.8) 10/08/16 06:00 D-Dimer 119 ng/mL (6.0-682) 10/08/16 06:00 Sodium 144 mmol/L (136-145) 10/09/16 06:25 Potassium 3.7 mmol/L (3.5-5.0) 10/09/16 06:25 Chloride 111 mmol/L (98-110) H 10/09/16 06:25 Carbon Dioxide 25 mmol/L (20-32) 10/09/16 06:25 BUN 7 mg/dL (10-26) L 10/09/16 06:25 Creatinine 0.6 mg/dL (0.4-1.5) 10/09/16 06:25 Estimated Creat Clear 289 10/09/16 06:25 Est GFR ( Amer) > 60 (60-) 10/09/16 06:25 Est GFR (Non-Af Amer) > 60 (60-) 10/09/16 06:25 Glucose 179 mg/dL (70-99) H 10/09/16 06:25 Calcium 9.7 mg/dL (8.5-10.5) 10/09/16 06:25 Total Bilirubin 0.1 mg/dL (0.2-1.2) L 10/07/16 15:40 AST 18 U/L (0-41) 10/07/16 15:40 ALT 25 U/L (0-45) 10/07/16 15:40 Alkaline Phosphatase 64 U/L (46-116) 10/07/16 15:40 Total Protein 6.2 g/dL (6.0-8.5) 10/07/16 15:40 Albumin 4.2 g/dL (3.0-5.5) 10/07/16 15:40 Amylase 31 U/L (20-104) 10/07/16 15:40 Urine Color Yellow (YELLOW) 10/07/16 16:05 Urine Appearance Clear (CLEAR) 10/07/16 16:05 Urine pH 6.5 (5.0 - 8.0) 10/07/16 16:05 Ur Specific [place] >=1.030 (1.010-1.030) H 10/07/16 16:05 Urine Protein Negative mg/dL (NEGATIVE) 10/07/16 16:05 Urine Ketones Negative mg/dL (NEGATIVE) 10/07/16 16:05 Urine Occult Blood 2+ (NEGATIVE) H 10/07/16 16:05 Urine Nitrite Positive (NEGATIVE) 10/07/16 16:05 Urine Bilirubin Negative (NEGATIVE) 10/07/16 16:05 Urine Urobilinogen 1.0 Eu (0.2-1.0) 10/07/16 16:05 Ur Leukocyte Esterase 1+ (NEGATIVE) H 10/07/16 16:05 Urine Glucose Negative mg/dL (NEGATIVE) 10/07/16 16:05 Urine HCG, Qual Negative (NEGATIVE) 10/07/16 16:35 Morphine Screen Negative ng/mL (<300) 10/07/16 16:05 Oxycodone Screen Negative ng/mL (<100) 10/07/16 16:05 Methadone Screen Negative ng/mL (<300) 10/07/16 16:05 POC Urine Barbiturates Negative ng/mL (<300) 10/07/16 16:05 Tricyclic Antidepress Negative ng/mL (<300) 10/07/16 16:05 Phencyclidine Screen Negative ng/mL (<25) 10/07/16 16:05 Amphetamines Screen Negative ng/mL (<1000) 10/07/16 16:05 POC Ur Methamphetamine Negative ng/mL (<1000) 10/07/16 16:05 MDMA Negative ng/mL (<500) 10/07/16 16:05 Benzodiazepines Screen Negative ng/mL (<300) 10/07/16 16:05 Cocaine Screen Negative ng/mL (<150) 10/07/16 16:05 U Cannabinoids Screen Negative ng/mL (< 50) 10/07/16 16:05 Assessment/Plan - Assessment/Plan (1) Bilateral pneumonia Status: Acute Current Visit: Yes Qualifiers: Pneumonia type: due to unspecified organism Lung location: lower lobe of lung Qualified Code(s): J18.9 - Pneumonia, unspecified organism Plan: Work to wean off O2 today. Ddimer negative yesterday. (2) Mental retardation Status: Acute Current Visit: Yes (3) Hypoxia Status: Acute Current Visit: Yes (4) Mental status change Status: Acute Current Visit: Yes Qualifiers: Altered mental status type: transient alteration of awareness Qualified Code(s): R40.4 - Transient alteration of awareness Plan: Improved. (5) Asthma Status: Acute Current Visit: Yes Qualifiers: Asthma severity: mild intermittent Asthma complication type: uncomplicated Qualified Code(s): J45.20 - Mild intermittent asthma, uncomplicated
[2016-10-09] MEDS: LEVOFLOXACIN 500MG/D5W 100ML 500 MG in PREMIX BAG 1 BAG IV SCH (08:50)
[2016-10-09] MEDS: BENZTROPINE MESYLATE 0.5 MG TAB PO SCH (08:51)
[2016-10-09] MEDS: POLYETHYLENE GLYCOL 3350 17 GM POWD.PACK PO SCH (09:05)
[2016-10-09] MEDS: methylPREDNISolone SOD SUCC 40 MG/ML VIAL IVP SCH ×2 (09:35→20:43)
[2016-10-09] MEDS: ENOXAPARIN SODIUM 40 MG/0.4 ML DISP.SYRIN SQ SCH (20:39)
[2016-10-09] MEDS: OLANZapine 5 MG TABLET PO SCH (20:42)
[2016-10-09] MEDS ORDERED: SALINE FLUSH 10 ML DISP.SYRIN IVF ONE ×2 (20:44→22:50)
[2016-10-09] MEDS: AZITHROMYCIN 500 MG in 0.9 % SODIUM CHLORIDE 250 ML IV SCH (20:53)
[2016-10-09] MEDS: VALPROIC ACID (AS SODIUM SALT) 250 MG/5 ML BOTTLE PO SCH (20:55)
[2016-10-09] MEDS ORDERED: LEVOTHYROXINE SODIUM 25 MCG TABLET ONE (23:38)
[2016-10-10] MEDS: IPRATROPIUM/ALBUTEROL SULFATE 3 ML AMPUL.NEB NEB SCH ×4 (02:02→09:00)
[2016-10-10 06:13] LABS: BASOPHILS % 0.2 (0.0-1.5); EOSINOPHILS % 0.6 % (0.0-6.8); MEAN CORPUSCULAR HEMOGLOBIN 30.9 pg (28.0-34.0); MEAN CORPUSCULAR VOLUME 93.8 fl (80.0-100.0); MONOCYTES % 3.9 % (0.0-11.0); NEUTROPHILS # 12.2 # k/uL (1.4-7.7)
[2016-10-10] MEDS: LEVOTHYROXINE SODIUM 100 MCG TABLET PO SCH (06:17)
[2016-10-10] MEDS: FAMOTIDINE 20 MG TABLET PO SCH (06:18)
[2016-10-10 06:27] LABS: eGFR (African) > 60; eGFR (Non-African) > 60
[2016-10-10] MEDS: methylPREDNISolone SOD SUCC 40 MG/ML VIAL IVP SCH (09:00)
[2016-10-10] MEDS: CITALOPRAM HYDROBROMIDE 20 MG TABLET PO SCH (09:04)
[2016-10-10] MEDS: LEVOFLOXACIN 500MG/D5W 100ML 500 MG in PREMIX BAG 1 BAG IV SCH (09:06)
[2016-10-10] MEDS: BENZTROPINE MESYLATE 0.5 MG TAB PO SCH (09:06)
[2016-10-10] MEDS: DESMOPRESSIN 0.2 MG PO SCH (09:07)
[2016-10-10] MEDS: risperiDONE 0.5 MG TABLET PO SCH (09:08)
[2016-10-10] MEDS: MULTIVITAMIN 1 EACH TABLET PO SCH (09:09)
[2016-10-10] MEDS ORDERED: LEVOFLOXACIN 500MG/D5W 100ML 100 ML IV ONE (09:15)
[2016-10-10] MEDS: POLYETHYLENE GLYCOL 3350 17 GM POWD.PACK PO SCH (09:45)
--- NOTE | 2016-10-10 09:49 | Discharge Summary ---
Discharge Summary - Discharge Sumary History of Present Illness: Patient was brought to ER by her Shelter Staff after an episode of "being out of it". Seemed unresponsive. In the ER found to be hypoxic with bilateral infiltrates. Patient tells me she has felt fine the past few days and has no complaints. Patient has MR and is somewhat unreliable. Spends most of the days watching TV. CT of head and abdomen/pelvis were negative in the ER. Condition at Discharge: Stable Home Medications: Ambulatory Orders Medication Instructions Recorded Albuterol Sulfate [Ventolin] 2 puff IN QID PRN 10/07/16 Benztropine Mesylate [Cogentin] 1 mg PO D 10/07/16 Citalopram Hydrobromide [Celexa] 10 mg PO DAILY 10/07/16 Desmopressin Acetate [Ddavp] 0.1 mg PO DAILY 10/07/16 Divalproex Sodium [Depakote] 1,500 mg PO HS 10/07/16 Docusate Sodium [Colace] 100 mg PO DAILY PRN 10/07/16 Epinephrine [Epipen 2-Sonido] 0.3 mg SQ 1T PRN 10/07/16 Levothyroxine Sodium [Synthroid] 125 mcg PO DAILY 10/07/16 Medroxyprogesterone Acetate 150 mg IM Q3M 10/07/16 [Depo-Provera] Multivits W-Min/Ferrous Gluc 1 tab PO DAILY 10/07/16 [Centrum Multivit-Mineral Liq] Olanzapine [Zyprexa] 20 mg PO HS 10/07/16 Oxybutynin Chloride [Ditropan] 1 tab PO DAILY PRN 10/07/16 Polyethylene Glycol 3350 [Miralax] 17 gm PO DAILY 10/07/16 Ranitidine HCl [Zantac] 150 mg PO DAILY 10/07/16 Risperidone [Risperdal] 3 mg PO BID 10/07/16 Levofloxacin [Levaquin] 500 mg PO DAILY #6 tablet 10/10/16 predniSONE [Deltasone] 40 mg PO QD #10 tablet 10/10/16 Consultations this Visit: None Procedures this Visit: None Allergies/Adverse Reactions: Allergies Allergy/AdvReac Type Severity Reaction Status Date / Time bee venom (honey bee) Allergy Verified 10/07/16 15:54 cefaclor [From Ceclor] Allergy Verified 10/07/16 15:53 Penicillins Allergy Verified 10/07/16 15:54 shellfish derived Allergy Verified 10/07/16 15:54 Patient Problems: Current Active Problems Problem Status Onset Asthma Acute Bilateral pneumonia Acute Hypoxia Acute Mental retardation Acute Mental status change Acute Pneumonia Acute Discharge Summary: Patient was admitted with B infiltrates seen on CXR and CT of abdomen/pelvis. Treated with IV zithromax 500 mg daily x 3 days and IV levaquin 500 mg daily. Responded well to duonebs and oxygen however continued to be tachypneic. Due to her asthma, steroids were started though patient didn't have a lot of wheezing. She responded well to steroids and was able to wean off O2. Great appetite while here. Mild hypernatremia resolved with changing IV fluids to 1/ 2 normal saline. Afebrile after 48 hours of antibiotics. On day of discharge, WBC increased from normal to 15,000. Clinically much improved - suspect due to steroids. Ddimer was negative for PE. Lovenox SQ used for DVT prevention. Patient will be discharged back to [facility]. Will complete 10 days of levaquin 500 mg daily - start 10-11-16 and 5 days of prednisone 40 mg. Staff to watch for any achilles problems with the steroid and fluoroquinolone. Albuterol every 6 hours for 3 days. Discharged home in good condition. Hospital Course: Discharge Dx: B pneumonia. Hypoxia. Asthma. Mental Retardation. Anxiety. Disposition - [facility]
[2016-10-10] MEDS ORDERED: SALINE FLUSH 10 ML DISP.SYRIN IVF ONE (10:12)
[2016-10-10 10:24] VITALS: BP 115/68
== END 2016-10-10 11:05 | disposition home or self-care (01) | DRG 195 ==
LOC: ED 15:23 → SOUTH 18:32
PROVIDERS: ADMIT Family Medicine; ATTEND Family Medicine
DX: J18.9 Pneumonia, unspecified organism (principal); R09.02 Hypoxemia; J45.909 Unspecified asthma, uncomplicated; F79 Unspecified intellectual disabilities; F41.9 Anxiety disorder, unspecified
CPT/HCPCS: 36415; 70450; 71010; 71020; 74176; 80048; 80053; 80377; 81002; 81025; 82150; 83605; 85025; 85379; 87040; 87086; 87186; 93005; A9270; J0456; J1650; J1956; J2920; J7030; J7050; 99223; 99233; 99238; 99284; G0481; J1030; S1016

== ENCOUNTER 2017-09-15 14:21 | Observation (INO) | payer OTHER ==
[2017-09-15] MEDS ORDERED: FAMOTIDINE/PF 20 MG/2 ML VIAL IVP ONE (14:27)
[2017-09-15] MEDS ORDERED: diphenhydrAMINE HCL 50 MG/ML VIAL IVP ONE (14:27)
[2017-09-15 14:52] LABS: BASOPHILS % 0.2 (0.0-1.5); EOSINOPHILS % 1.2 % (0.0-6.8); MEAN CORPUSCULAR HEMOGLOBIN 30.6 pg (28.0-34.0); MEAN CORPUSCULAR VOLUME 91.7 fl (80.0-100.0); MONOCYTES % 7.8 % (0.0-11.0); NEUTROPHILS # 4.6 # k/uL (1.4-7.7)
[2017-09-15 15:06] LABS: eGFR (African) > 60; eGFR (Non-African) > 60
--- NOTE | 2017-09-15 17:47 | Diagnostic Imaging Report ---
YOSSI DELGADO (EGG SMELLER) - ER [facility] [address] [id number] Report Submission Date: Sep 15, 2017 4:11:06 PM CDT Patient Study Name: ALONDRA HAIRSTON Date: Sep 15, 2017 3:53:00 PM CDT Modality Type: DX Gender: F Description: CHEST : 88 Institution: [facility] Physician: YOSSI DELGADO (EGG SMELLER) - ER Chest, PA and lateral HISTORY Cough, shortness of breath. FINDINGS There is poor inspiration. There is no infiltrate, effusion or pneumothorax. Heart size and pulmonary vascularity are normal. Since 10/08/2016, no change has occurred. IMPRESSION No active pulmonary disease. Electronically signed on Sep 15, 2017 4:11:06 PM CDT by: Patric DEL CID
[2017-09-15] MEDS ORDERED: OXYBUTYNIN CHLORIDE 5 MG TABLET PO PRN (18:07)
[2017-09-15] MEDS ORDERED: DOCUSATE SODIUM 100 MG CAPSULE PO PRN (18:07)
[2017-09-15] MEDS ORDERED: ALBUTEROL SULFATE 2.5 MG/3 ML AMPUL.NEB NEB PRN (18:11)
--- NOTE | 2017-09-15 19:43 | ED Physician Documentation ---
General Adult - HISTORIAN Historian: patient, paramedics - [facility] Stated Complaint: Allergic Reaction Chief Complaint: General Adult Onset: minutes Further Comments: yes (26 year old female patient brought in by [facility] from [facility]. Report called from clinic - state patient was stung by a wasp, took Epi pen at home. On arrival to clinic benadryl 25mg IM given and solumedrol 125mg IM given. RA 89-90% with RR 24 - patient placed on O2 at EMS called. On arrival to ER, examined left thumb and index finger. Patient states she "felt it sting me", did not see the wasp. No erythma or sting kaitlin noted on hand.) - ROS CONST: no problems EYES/ENT: none CVS/RESP: none GI/: none MS/SKIN/LYMPH: none NEURO/PSYCH: headache. denies: fainting, dizziness, tingling, numbness, difficulty walking, difficulty with speech, anxiety, depression, other - PAST HX Past History: none Other History: other (bipolar, anxiety, psychosis, depression, ADHD, PTSD, hypothyroidism, MR, constipation, asthma, seizures) Allergies/Adverse Reactions: Allergies Allergy/AdvReac Type Severity Reaction Status Date / Time cefaclor [From Ceclor] Allergy Verified 09/15/17 15:12 Penicillins Allergy Verified 09/15/17 15:12 shellfish derived Allergy Verified 09/15/17 15:12 venom-honey bee Allergy Verified 09/15/17 15:12 [bee venom (honey bee)] Home Medications: Ambulatory Orders Medication Instructions Recorded Albuterol Sulfate [Ventolin] 2 puff IN QID PRN 10/07/16 Benztropine Mesylate [Cogentin] 1 mg PO D 10/07/16 Citalopram Hydrobromide [Celexa] 10 mg PO DAILY 10/07/16 Desmopressin Acetate [Ddavp] 0.1 mg PO DAILY 10/07/16 Divalproex Sodium [Depakote] 1,500 mg PO HS 10/07/16 Docusate Sodium [Colace] 100 mg PO DAILY PRN 10/07/16 Epinephrine [Epipen 2-Sonido] 0.3 mg SQ 1T PRN 10/07/16 Levothyroxine Sodium [Synthroid] 125 mcg PO DAILY 10/07/16 Medroxyprogesterone Acetate 150 mg IM Q3M 10/07/16 [Depo-Provera] Olanzapine [Zyprexa] 20 mg PO HS 10/07/16 Oxybutynin Chloride [Ditropan] 1 tab PO DAILY PRN 10/07/16 Polyethylene Glycol 3350 [Miralax] 17 gm PO DAILY 10/07/16 Ranitidine HCl [Zantac] 150 mg PO DAILY 10/07/16 Risperidone [Risperdal] 3 mg PO BID 10/07/16 - SOCIAL HX Smoking History: non-smoker - FAMILY HX Family History: No - VITAL SIGNS Vital Signs: Vital Signs Temp Pulse Resp BP Pulse Ox 96 H 17 153/89 98 09/15/17 14:21 09/15/17 14:21 09/15/17 14:21 09/15/17 14:21 - REVIEWED ASSESSMENTS Nursing Assessment Reviewed: Yes Vitals Reviewed: Yes Progress - Progress Progress: Lab and xrays complete. Weaned O2 to RA - Sat down to 88%; back on 2L NC D DIMR WNL; chest xray negative; BBS clear, direct care supervisor reports patient does not wear O2 at home. 1745 RA sat evaluation - ambulated in ER, Sat down to 86%, Sat 88% sitting on stretcher. BBS clear, no rales or wheezing. O2 on at 2L NC [address] Ivy. Will admit observation and continue oxygen, add breathing treatments. Patient agrees to inpatient stay. - EKG/XRAY/CT EKG: rhythm (SR, no acute changes) ED Results Lab/Radiology - Lab Results Lab Results: Lab Results 09/15/17 09/15/17 09/15/17 14:45 14:45 14:45 WBC 7.30 K/ul K/ul (4.00-12.00) RBC 4.45 M/ul M/ul (3.90-5.20) Hgb 13.6 g/dL g/dL (12.0-16.0) Hct 40.8 % % (34.5-46.5) MCV 91.7 fl fl (80.0-100.0) MCH 30.6 pg pg (28.0-34.0) MCHC 33.3 g/dL g/dL (30.0-36.0) RDW 13.7 % % (11.3-14.3) Plt Count 118 K/mm3 L K/mm3 (130-400) Neut % (Auto) 63.7 % % (39.0-79.0) Lymph % (Auto) 25.7 % % (16.0-50.0) [place] % (Auto) 7.8 % % (0.0-11.0) Eos % (Auto) 1.2 % % (0.0-6.8) Baso % (Auto) 0.2 (0.0-1.5) Neut # (Auto) 4.6 # k/uL # k/uL (1.4-7.7) Lymph # (Auto) 1.9 # k/uL # k/uL (0.6-4.0) [place] # (Auto) 0.6 # k/uL # k/uL (0.0-0.9) Eos # (Auto) 0.1 # k/uL # k/uL (0.0-0.6) Baso # (Auto) 0.0 # k/uL # k/uL (0.0-0.5) Reactive Lymphs % 1.4 % % (0.0-5.0) Reactive Lymphs # 0.1 # k/uL # k/uL (0.0-0.8) D-Dimer 270 ng/mL ng/mL (6.0-682) Sodium 140 mmol/L mmol/L (136-145) Potassium 3.6 mmol/L mmol/L (3.5-5.1) Chloride 104 mmol/L mmol/L (98-107) Carbon Dioxide 28 mmol/L mmol/L (22-30) BUN 9 mg/dL mg/dL (7-17) Creatinine 0.60 mg/dL mg/dL (0.52-1.04) Est GFR ( Amer) > 60 (60 - ) Est GFR (Non-Af Amer) > 60 (60 - ) Glucose 126 mg/dL H mg/dL (74-106) Calcium 9.1 mg/dL mg/dL (8.4-10.2) Total Bilirubin < 0.1 mg/dL L mg/dL (0.2-1.3) AST 22 U/L U/L (15-46) ALT 40 U/L U/L (13-69) Alkaline Phosphatase 63 U/L U/L (38-126) Total Protein 6.5 g/dL g/dL (6.3-8.2) Albumin 3.9 g/dL g/dL (3.5-5.0) - Radiology Radiology Impressions: Chest, PA and lateral HISTORY Cough, shortness of breath. FINDINGS There is poor inspiration. There is no infiltrate, effusion or pneumothorax. Heart size and pulmonary vascularity are normal. Since 10/08/2016, no change has occurred. IMPRESSION No active pulmonary disease. Electronically signed on Sep 15, 2017 4:11:06 PM CDT by: Patric Hilton - Orders Orders: ED Orders Category Date Time Status CHEST 2VIEW [RAD] Stat Exams 09/15/17 14:34 Completed CBC/PLATELET/DIFF Stat Lab 09/15/17 14:45 Completed CMP Stat Lab 09/15/17 14:45 Completed D DIMER Stat Lab 09/15/17 14:45 Completed Famotidine/Pf [Pepcid] Med 09/15/17 14:27 Discontinued 20 mg IVP NOW ONE diphenhydrAMINE HCL [Benadryl] Med 09/15/17 14:27 Discontinued 25 mg IVP NOW ONE General Adult Physical Exam - PHYSICAL EXAM GENERAL APPEARANCE: mild distress EENT: eye inspection normal, ENT inspection normal, pharynx normal, no signs of dehydration, ADWOA, no nystagmus, TM's nml RESPIRATORY: no resp distress, chest non-tender, breath sounds normal, other ( RA Sat 88-90%; O2 on a 5L to maintain sat >92%) CVS: reg rate & rhythm, heart sounds normal, equal pulses, no murmur, no gallop , PMI nml, no JVD, no friction rub, 24 ABDOMEN: soft, no organomegaly, normal bowel sounds, no abdominal bruit, no distension BACK: normal inspection, no CVA tenderness SKIN: warm/dry, pallor, other (No sting kaitlin noted on left hand, thumb or fingers) EXTREMITIES: non-tender, normal range of motion, no evidence of injury, no edema , J, [employer] NEURO: motor nml, sensation nml, mood/affect nml (at her baseline per direct care supervisor ) Discharge Clincal Impression: Hypoxemia requiring supplemental oxygen Condition: Stable Disposition: 01 HOME, SELF-CARE Decision to Admit: NO Decision Time: 19:51
[2017-09-15] MEDS: LEVOTHYROXINE SODIUM 100 MCG TABLET PO SCH (20:32)
--- NOTE | 2017-09-15 20:38 | History and Physical Report ---
History of Present Illnes - History of Present Illness Reason for Visit: Wasp Sting/Hypoxia History of Present Illness: Alejandrina (KOTA) is a 26 year old female admitted after being stung by a wasp on her left thumb today outside of the nursing home in which she lives ([facility] in [place]). She was seen in the clinic there, and then transferred to our facility after being treated with benadryl and an Epi pen. She was noted in the ER to by hypoxic with her room air saturations in the high 80s. She is not on oxygen at home. Her D-dimer was negative and her labs were remarkable only for mild thrombocytopenia and mild hyperglycemia. She says that she is feeling well and has no respiratory complaints, but nursing has been unable to wean her oxygen thus far. - Past Medical History Pulmonary: Asthma BLACK BELT: Other (Tremor) Gastrointestinal: GERD Psych: Anxiety, Bipolar, Depression, Other (ADHD; PTSD; Mental retardation; Psychosis; Personality D/O) Renal/: Other (incontinence) Endocrine: Hypothyroidism - Past Surgical History Past Surgical History: None - Past Social History Smoke: No Alcohol: None Drugs: None Lives: Other ([facility] in [facility]) Domestic Violence: Negative - Health Maintenance Health Maintenance: Influenza Vaccine Influenza Vaccine: Current for this Influenza Season Pneumonia Vaccine: Yes Resuscitation Status: Resusciation Status Resuscitation Status Full Code - Unable to Obtain History Unable to Obtain: No Review of Systems - Review of Systems Constitutional: Weakness (resolved). negative: Fever, Chills, Sweats Eyes: negative: pain ENT: negative: Ear Pain Respiratory: Wheezing (resolved). negative: Cough, Shortness of Breath Cardiovascular: negative: Chest Pain Gastrointestinal: Constipation (chronic). negative: Nausea, Vomiting Genitourinary: negative: Dysuria, Frequency Musculoskeletal: negative: Neck Pain, Shoulder Pain Skin: negative: Rash, Lesions Neurological: Weakness (improved) - Medications/Allergies Allergies/Adverse Reactions: Allergies Allergy/AdvReac Type Severity Reaction Status Date / Time cefaclor [From Ceclor] Allergy Verified 09/15/17 15:12 Penicillins Allergy Verified 09/15/17 15:12 shellfish derived Allergy Verified 09/15/17 15:12 venom-honey bee Allergy Verified 09/15/17 15:12 [bee venom (honey bee)] Current Inpatient Medications: Current Inpatient Medications Albuterol Sulfate (Ventolin) 2.5 mg NEB Q4 PRN PRN Reason: Wheezing Albuterol/Ipratropium (Duoneb) 3 ml NEB Q6H AWNDY Benztropine Mesylate (Cogentin) 1 mg PO BID WANDY Citalopram Hydrobromide (Celexa) 10 mg PO DAILY WANDY Docusate Sodium (Colace) 100 mg PO DAILY PRN PRN Reason: Constipation Levothyroxine Sodium (Synthroid) 125 mcg PO 0700 WANDY Olanzapine (Zyprexa) 20 mg PO HS [facility] Oxybutynin Chloride (Ditropan) mg PO DAILY PRN PRN Reason: Spasms Polyethylene Glycol (Miralax) 17 gm PO DAILY WANDY Risperidone (Risperdal) 3 mg PO AM WANDY Risperidone (Risperdal) 4 mg PO HS WANDY Exam - Exam General: Alert, Oriented to Person, Other (Pleasant mildly handicapped female who answers simple questions well. She is in no acute distress.), Obese HEENT: Atraumatic, PERRLA, EOMI, Mouth Mucous membr. moist/[place] Neck: No: Stridor, Rigidity Lungs: Clear to auscultation, Normal air movement, Speaks full Sentences. No: Respiratory Distress Cardiovascular: Regular rate Murmur: No: Systolic Murmur Murmur Location: No: Other Abdomen: Normal bowel sounds, Soft, Distended (due to obesity) Genitourinary: No: Other Male Genitourinary: No: Other Female Genitourinary: No: Other Integumentary: Normal, [place], Warm, Dry Extremities: No clubbing, No cyanosis, No edema Neurological: Normal speech Psych/Mental Status: Other (Flat affect) Assessment/Plan - Assessment/Plan (1) Hymenoptera sting Status: Acute Current Visit: Yes Assessment: She has been treated with benadryl and epinephrine with no current evidence of anaphylaxis (2) Asthma Status: Acute Current Visit: No Qualifiers: Asthma severity: mild intermittent Asthma complication type: uncomplicated Qualified Code(s): J45.20 - Mild intermittent asthma, uncomplicated Assessment: Chronic, worsened by sting. Plan: Duoneb 1 vial Q6H (3) Hypoxia Status: Acute Current Visit: No Assessment: Continue O2 at 2LNC, attempt to wean If we can do so, I hope to d/c her to home in the morning. (4) Mental retardation Status: Acute Current Visit: No VTE Assessment - RISK FACTOR SCORE VTE RISK FACTOR SCORES: OBESITY - RISK VTE LOW RISK: SCORE OF 1 OR LESS (RISK PROXIMAL DVT 0.4%) NO PROPHYLAXIS NEEDED
[2017-09-15] MEDS ORDERED: OLANZAPINE 20 MG PO SCH (21:00)
[2017-09-15] MEDS ORDERED: risperiDONE 0.5 MG TABLET PO SCH (21:00)
[2017-09-15] MEDS ORDERED: OLANZapine 5 MG TABLET PO SCH (21:00)
[2017-09-15] MEDS ORDERED: VALPROIC ACID (AS SODIUM SALT) 250 MG/5 ML BOTTLE PO SCH (21:00)
[2017-09-15] MEDS ORDERED: DIVALPROEX SODIUM 1500 MG PO SCH (21:00)
[2017-09-15] MEDS ORDERED: RISPERIDONE 3 MG PO SCH (21:00)
[2017-09-15] MEDS: BENZTROPINE MESYLATE 0.5 MG TAB PO SCH (21:44)
[2017-09-15 22:49] VITALS: BMI 39.8
[2017-09-15] MEDS: IPRATROPIUM/ALBUTEROL SULFATE 3 ML AMPUL.NEB NEB SCH (22:55)
[2017-09-16] MEDS ORDERED: LEVOTHYROXINE SODIUM 25 MCG TABLET ONE (00:50)
[2017-09-16] MEDS: IPRATROPIUM/ALBUTEROL SULFATE 3 ML AMPUL.NEB NEB SCH ×3 (02:45→13:37)
[2017-09-16] MEDS: LEVOTHYROXINE SODIUM 100 MCG TABLET PO SCH (06:02)
--- NOTE | 2017-09-16 08:27 | Inpatient Progress Note ---
Subjective - Required Recertification Statement I anticipate X number of days because-include discharge plan: 1 - Review of Systems Events since last encounter: Patient says that she is still breathing well, however her oxygen requirements have now gone up to 4LNC. I have ordered a CT chest to see if there is an occult pneumonia or less likely a PE. If her CT fails do demonstrate either, I think that we can still d/c her back to the [facility], but will need to make arrangements for oxygen. General: Denies: Chills HEENT: Denies: Head Aches Pulmonary: Cough. Denies: Dyspnea Cardiovascular: Denies: Chest Pain Gastrointestinal: Denies: Nausea, Vomiting Genitourinary: Denies: Dysuria Musculoskeletal: Denies: Neck Pain Neurological: Denies: Weakness Objective - Exam Vitals and I&O: Vital Signs Temp 97.1 F L 09/16/17 06:00 Pulse 89 09/16/17 06:00 Resp 16 09/16/17 06:00 BP 126/53 09/16/17 06:00 Pulse Ox 94 09/16/17 06:00 Intake & Output 09/15/17 09/15/17 09/16/17 11:59 23:59 11:59 Weight 102 kg Other: Voiding Method Toilet # Voids 1 1 General: Alert, Oriented to Person HEENT: Atraumatic, PERRLA Neck: Supple, No JVD Lungs: Clear to auscultation, Decreased Air Movement Cardiovascular: Regular rate Abdomen: Normal bowel sounds, Soft, No tenderness Skin: Normal, [place], Warm Neurological: Normal speech Psych/Mental Status: Mental status NL (at baseline) - Results Results: Laboratory Results WBC 7.30 K/ul (4.00-12.00) 09/15/17 14:45 RBC 4.45 M/ul (3.90-5.20) 09/15/17 14:45 Hgb 13.6 g/dL (12.0-16.0) 09/15/17 14:45 Hct 40.8 % (34.5-46.5) 09/15/17 14:45 MCV 91.7 fl (80.0-100.0) 09/15/17 14:45 MCH 30.6 pg (28.0-34.0) 09/15/17 14:45 MCHC 33.3 g/dL (30.0-36.0) 09/15/17 14:45 RDW 13.7 % (11.3-14.3) 09/15/17 14:45 Plt Count 118 K/mm3 (130-400) L 09/15/17 14:45 Neut % (Auto) 63.7 % (39.0-79.0) 09/15/17 14:45 Lymph % (Auto) 25.7 % (16.0-50.0) 09/15/17 14:45 [place] % (Auto) 7.8 % (0.0-11.0) 09/15/17 14:45 Eos % (Auto) 1.2 % (0.0-6.8) 09/15/17 14:45 Baso % (Auto) 0.2 (0.0-1.5) 09/15/17 14:45 Neut # (Auto) 4.6 # k/uL (1.4-7.7) 09/15/17 14:45 Lymph # (Auto) 1.9 # k/uL (0.6-4.0) 09/15/17 14:45 [place] # (Auto) 0.6 # k/uL (0.0-0.9) 09/15/17 14:45 Eos # (Auto) 0.1 # k/uL (0.0-0.6) 09/15/17 14:45 Baso # (Auto) 0.0 # k/uL (0.0-0.5) 09/15/17 14:45 Reactive Lymphs % 1.4 % (0.0-5.0) 09/15/17 14:45 Reactive Lymphs # 0.1 # k/uL (0.0-0.8) 09/15/17 14:45 D-Dimer 270 ng/mL (6.0-682) 09/15/17 14:45 Sodium 140 mmol/L (136-145) 09/15/17 14:45 Potassium 3.6 mmol/L (3.5-5.1) 09/15/17 14:45 Chloride 104 mmol/L (98-107) 09/15/17 14:45 Carbon Dioxide 28 mmol/L (22-30) 09/15/17 14:45 BUN 9 mg/dL (7-17) 09/15/17 14:45 Creatinine 0.60 mg/dL (0.52-1.04) 09/15/17 14:45 Est GFR ( Amer) > 60 (60-) 09/15/17 14:45 Est GFR (Non-Af Amer) > 60 (60-) 09/15/17 14:45 Glucose 126 mg/dL (74-106) H 09/15/17 14:45 Calcium 9.1 mg/dL (8.4-10.2) 09/15/17 14:45 Total Bilirubin < 0.1 mg/dL (0.2-1.3) L 09/15/17 14:45 AST 22 U/L (15-46) 09/15/17 14:45 ALT 40 U/L (13-69) 09/15/17 14:45 Alkaline Phosphatase 63 U/L (38-126) 09/15/17 14:45 Total Protein 6.5 g/dL (6.3-8.2) 09/15/17 14:45 Albumin 3.9 g/dL (3.5-5.0) 09/15/17 14:45 Assessment/Plan - Assessment/Plan (1) Hymenoptera sting Status: Acute Current Visit: Yes Assessment: Resolved (2) Asthma Status: Acute Current Visit: No Qualifiers: Asthma severity: mild intermittent Asthma complication type: uncomplicated Qualified Code(s): J45.20 - Mild intermittent asthma, uncomplicated Assessment: Chronic Plan: Continue HFN (3) Hypoxia Status: Acute Current Visit: No Assessment: With increased oxygen requirements Plan: Check CT chest with contrast to evalute (4) Mental retardation Status: Acute Current Visit: No
[2017-09-16] MEDS ORDERED: CITALOPRAM HYDROBROMIDE 20 MG TABLET PO SCH (09:00)
[2017-09-16] MEDS ORDERED: risperiDONE 0.5 MG TABLET PO SCH (09:00)
[2017-09-16] MEDS ORDERED: BENZTROPINE MESYLATE 0.5 MG TAB PO SCH (09:00)
[2017-09-16] MEDS ORDERED: POLYETHYLENE GLYCOL 3350 17 GM POWD.PACK PO SCH (09:00)
[2017-09-16] MEDS ORDERED: OXYBUTYNIN CHLORIDE 5 MG TABLET PO PRN (09:51)
[2017-09-16] MEDS ORDERED: traMADol HCL 50 MG TABLET ONE (09:54)
[2017-09-16] MEDS: BENZTROPINE MESYLATE 0.5 MG TAB PO SCH (11:53)
--- NOTE | 2017-09-16 12:46 | Diagnostic Imaging Report ---
FAVIOLA GIL [facility] [address] [facility] [address] [address] Report Submission Date: Sep 16, 2017 10:51:43 AM CDT Patient Study Name: ALONDRA HAIRSTON Date: Sep 16, 2017 10:10:36 AM CDT Modality Type: CT\SR Gender: F Description: CT CHEST W/ CONTRAST : 88 Institution: [facility] Physician: FAVIOLA GIL Examination: CT chest History: INCREASED DYSPNEA TODAY, HYPOXIA. STUNG BY WASP YESTERDAY. (Hx) Comparison exams: Plain film chest dated 15 September 2017 Technique: CT chest with contrast protocol Findings: Diffuse interstitial prominence. No focal consolidative process. No posterior pleural thickening. Anterior mediastinum and janay are without gross mass or pathologic adenopathy. Thoracic aorta without evidence for aneurysm. No atherosclerotic disease. Pulmonary vascular mixing artifact. Cardiac silhouette not enlarged. No pericardial effusion. Lower neck structures, upper abdominal organs, and osseous structures are without gross abnormality. Impression: Diffuse interstitial prominence - diffuse infectious process versus increased volume status: correlate with any underlying medical condition. No effusion. No evidence for thoracic aortic abnormality. Electronically signed on Sep 16, 2017 10:51:43 AM CDT by: Jacob DEL CID
[2017-09-16 19:05] VITALS: BP 126/53
--- NOTE | 2017-09-19 14:40 | Discharge Summary ---
DATE OF ADMISSION: September 15, 2017 DATE OF DISCHARGE: September 16, 2017 DIAGNOSES ON THIS HOSPITALIZATION: 1. Hypoxia. 2. Mental retardation. 3. Morbid obesity. 4. Hymenoptera sting. SUMMARIZATION OF ADMISSION HISTORY AND PHYSICAL: This is a 26-year-old mentally-handicapped female who resides at [facility] who presented on the day of admission after being stung by a wasp on her left thumb. She was seen initially at the clinic in [place] and given epinephrine, as well as Benadryl, but was sent to the emergency room for further evaluation. Her D-dimer was negative and subsequent CT of her chest showed no evidence of a pulmonary embolism. Nor were there any infiltrates noted on chest x-ray or CT. She was, however, noted to be hypoxic and she was started on oxygen at 2 liters which brought her oxygen saturations up to about the mid-90s. MEDICATIONS ON DISCHARGE: She was discharged to home then with continuation of all of her current medications with the addition of oxygen at 2 liters per nasal cannula. DISCHARGE INSTRUCTIONS: She will likely need follow up with Pulmonology for further evaluation of her pulmonary status and with her primary care provider in 1 week. MARIA EUGENIA
== END 2017-09-16 19:06 | disposition home or self-care (01) ==
LOC: ED 14:21 → INTOOBSV 18:04 → SOUTH 18:04
PROVIDERS: ADMIT Family Medicine; ATTEND Family Medicine
DX: R09.02 Hypoxemia (principal)
CPT/HCPCS: 71046; 71260; 80053; 84703; 85025; 85379; G0379; 99217; 99219; Q9967; G0378

== ENCOUNTER 2018-03-16 12:27 | Emergency (ER) | payer OTHER ==
[2018-03-16 13:21] LABS: BASOPHILS % 0.4 (0.0-1.5); EOSINOPHILS % 1.8 % (0.0-6.8); MEAN CORPUSCULAR HEMOGLOBIN 29.6 pg (28.0-34.0); MONOCYTES % 7.4 % (0.0-11.0); NEUTROPHILS # 4.7 # k/uL (1.4-7.7)
[2018-03-16 13:42] LABS: eGFR (Non-African) > 60
--- NOTE | 2018-03-16 13:50 | ED Physician Documentation ---
General Adult - HISTORIAN Historian: patient - HPI Stated Complaint: no complaint Chief Complaint: General Adult Onset: other (unknown ) Timing: still present Severity: mild Further Comments: yes (Per EMS she was at her PCP for a PAP and her vitals showed low oxygen levels. She states she feels fine like normal. She also denies any problems or complaints. After some time in the ER her staff from her intermediate did arrive. She also states the pt has had no complaints. She states she has had to use oxygen at home before and she does have home oxygen.) Last known Well Code/Unknown Code: Unknown - ROS CONST: no problems - PAST HX Past History: other (hypothyroidism , depression, asthma ) Immunizations: UTD Allergies/Adverse Reactions: Allergies Allergy/AdvReac Type Severity Reaction Status Date / Time cefaclor [From Ceclor] Allergy Verified 04/12/18 15:33 Penicillins Allergy Verified 04/12/18 15:33 shellfish derived Allergy Verified 04/12/18 15:33 venom-honey bee Allergy Verified 04/12/18 15:33 [bee venom (honey bee)] Home Medications: Ambulatory Orders Medication Instructions Recorded Albuterol Sulfate [Ventolin] 2 puff IN QID PRN 10/07/16 Benztropine Mesylate [Cogentin] 1 mg PO D 10/07/16 Citalopram Hydrobromide [Celexa] 10 mg PO DAILY 10/07/16 Desmopressin Acetate [Ddavp] 0.1 mg PO DAILY 10/07/16 Divalproex Sodium [Depakote] 1,500 mg PO HS 10/07/16 Docusate Sodium [Colace] 100 mg PO DAILY PRN 10/07/16 Epinephrine [Epipen 2-Sonido] 0.3 mg SQ 1T PRN 10/07/16 Levothyroxine Sodium [Synthroid] 125 mcg PO DAILY 10/07/16 Medroxyprogesterone Acetate 150 mg IM Q3M 10/07/16 [Depo-Provera] Olanzapine [Zyprexa] 20 mg PO HS 10/07/16 Polyethylene Glycol 3350 [Miralax] 17 gm PO DAILY 10/07/16 Ranitidine HCl [Zantac] 150 mg PO DAILY 10/07/16 Albuterol Sulfate [Ventolin HFN] 2 puff INH PRN PRN 04/12/18 Fluticasone Propionate 110 Mcg 2 puff INH BID 04/12/18 [Flovent Hfa] Prazosin HCl [Minipress] 1 tab PO HS 04/12/18 Risperidone [Risperdal] 1 tab PO DAILY 04/12/18 Risperidone [Risperdal] 1 tab PO HS 04/12/18 - SOCIAL HX Smoking History: non-smoker Alcohol Use: none Drug Use: none - FAMILY HX Family History: No - VITAL SIGNS Vital Signs: Vital Signs Temp Pulse Resp BP Pulse Ox 97.4 F L 90 20 131/77 85 L 03/16/18 13:14 03/16/18 13:14 03/16/18 13:14 03/16/18 13:14 03/16/18 13:14 - REVIEWED ASSESSMENTS Nursing Assessment Reviewed: Yes Vitals Reviewed: Yes Progress - Progress Progress: 1330: denies any complaints DG ED Results Lab/Radiology - Lab Results Lab Results: Lab Results 03/16/18 03/16/18 13:18 13:18 WBC 7.80 K/ul K/ul (4.00-12.00) RBC 4.67 M/ul M/ul (3.90-5.20) Hgb 13.8 g/dL g/dL (12.0-16.0) Hct 42.3 % % (34.5-46.5) MCV 90.0 fl fl (80.0-100.0) MCH 29.6 pg pg (28.0-34.0) MCHC 32.8 g/dL g/dL (30.0-36.0) RDW 13.5 % % (11.3-14.3) Plt Count 130 K/mm3 K/mm3 (130-400) Neut % (Auto) 59.4 % % (39.0-79.0) Lymph % (Auto) 31.0 % % (16.0-50.0) [place] % (Auto) 7.4 % % (0.0-11.0) Eos % (Auto) 1.8 % % (0.0-6.8) Baso % (Auto) 0.4 (0.0-1.5) Neut # (Auto) 4.7 # k/uL # k/uL (1.4-7.7) Lymph # (Auto) 2.4 # k/uL # k/uL (0.6-4.0) [place] # (Auto) 0.6 # k/uL # k/uL (0.0-0.9) Eos # (Auto) 0.1 # k/uL # k/uL (0.0-0.6) Baso # (Auto) 0.0 # k/uL # k/uL (0.0-0.5) Sodium 135 mmol/L L mmol/L (136-145) Potassium 3.7 mmol/L mmol/L (3.5-5.1) Chloride 99 mmol/L mmol/L (98-107) Carbon Dioxide 31 mmol/L H mmol/L (22-30) BUN 11 mg/dL mg/dL (7-17) Creatinine 0.60 mg/dL mg/dL (0.52-1.04) Estimated Creat Clear 305 Est GFR ( Amer) > 60 (60 - ) Est GFR (Non-Af Amer) > 60 (60 - ) Glucose 85 mg/dL mg/dL (74-106) Calcium 8.5 mg/dL mg/dL (8.4-10.2) Total Bilirubin 0.5 mg/dL mg/dL (0.2-1.3) AST 26 U/L U/L (15-46) ALT 37 U/L U/L (13-69) Alkaline Phosphatase 63 U/L U/L (38-126) Total Protein 6.2 g/dL L g/dL (6.3-8.2) Albumin 3.9 g/dL g/dL (3.5-5.0) - Radiology Radiology Impressions: Examination: Portable chest History: Evaluate lungs Comparison exam: 15 September 2017 Findings: Single view of the chest demonstrates a normal cardiac and mediastinal silhouette. Lung quinonez without focal infiltrate. No blunting of the costophrenic margins. Osseous structures are appropriate for age. Impression: No acute pulmonary process. Electronically signed on Mar 16, 2018 2:03:06 PM CLINICAL PSYCHIATRIST by: Jacob Jiménez - Orders Orders: ED Orders Category Date Time Status CHEST 1VIEW [RAD] Stat Exams 03/16/18 Ordered CBC/PLATELET/DIFF Stat Lab 03/16/18 13:18 Completed CMP Stat Lab 03/16/18 13:18 Completed Oxygen Daily Oxygen 03/16/18 12:45 Ordered General Adult Physical Exam - PHYSICAL EXAM GENERAL APPEARANCE: no distress EENT: eye inspection normal, ENT inspection normal, no signs of dehydration NECK: normal inspection RESPIRATORY: no resp distress, chest non-tender, breath sounds normal CVS: reg rate & rhythm, heart sounds normal ABDOMEN: soft, no distension BACK: normal inspection SKIN: warm/dry, normal color EXTREMITIES: non-tender NEURO: oriented X3 Discharge Clincal Impression: Hypoxia Referrals: Shawn Mercado [Primary Care Provider] - 2 Days Comments: 1. Wear oxygen at home for oxygen under 90% 2. Follow up with PCP in 2-4 days 3. Meds as prescribed 4. Return to ER for any concerns Condition: Stable Disposition: 01 HOME, SELF-CARE Decision to Admit: NO Date of Decison to Admit: 03/16/18 Decision Time: 14:04
[2018-03-16 14:15] VITALS: BP 113/79
--- NOTE | 2018-03-16 17:26 | Diagnostic Imaging Report ---
DANIEL CASILLAS [facility] [address] [facility] [address] [place], [place]. [address] Report Submission Date: Mar 16, 2018 2:03:06 PM MATERIALS BRANCH CHIEF Patient Study Name: ALONDRA HAIRSTON Date: Mar 16, 2018 1:08:16 PM MATERIALS BRANCH CHIEF Modality Type: DX Gender: F Description: CHEST : 88 Institution: [facility] Physician: DANIEL CASILLAS Examination: Portable chest History: Evaluate lungs Comparison exam: 15 September 2017 Findings: Single view of the chest demonstrates a normal cardiac and mediastinal silhouette. Lung quinonez without focal infiltrate. No blunting of the costophrenic margins. Osseous structures are appropriate for age. Impression: No acute pulmonary process. Electronically signed on Mar 16, 2018 2:03:06 PM MATERIALS BRANCH CHIEF by: Jacob DEL CID
== END 2018-03-16 14:13 | disposition home or self-care (01) ==
LOC: ED 12:27
DX: R09.02 Hypoxemia (principal)
CPT/HCPCS: 36415; 71045; 80053; 85025; 99282; 99284

== ENCOUNTER 2018-04-12 15:11 | Emergency (ER) | payer OTHER ==
--- NOTE | 2018-04-12 15:57 | ED Physician Documentation ---
General Adult - HISTORIAN Historian: patient, parent - HPI Stated Complaint: SOA Chief Complaint: General Adult Onset: hours Timing: still present Severity: moderate Further Comments: yes (Pt is a 27 yo female with mild MR from an assisted living facility who was found SpO2=73% at home while sitting on the couch. Pt had not been complaining of sob. Pt's SpO2 was 86% RA on arrival in ER. Pt has hx asthma, but has not been wheezy. 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 Pt was seen here on 03-16-18 with the same presentation. The patient had no complaints but was found to have low SpO2 at home. Pt is checked periodically at home for her SpO2 and she is put on NC O2 when her sat is <90%. Staff member reports that it is never found to be >90% on any check.) - ROS CONST: no problems EYES/ENT: none CVS/RESP: other (low SpO2) GI/: none MS/SKIN/LYMPH: none - PAST HX Past History: other (Anxiety/Depression, Asthma, Bipolar d/o, GERD, Seizures, Thyroid d/o.) Surgeries/Procedures: none Allergies/Adverse Reactions: Allergies Allergy/AdvReac Type Severity Reaction Status Date / Time cefaclor [From Ceclor] Allergy Verified 04/12/18 15:33 Penicillins Allergy Verified 04/12/18 15:33 shellfish derived Allergy Verified 04/12/18 15:33 venom-honey bee Allergy Verified 04/12/18 15:33 [bee venom (honey bee)] Home Medications: Ambulatory Orders Medication Instructions Recorded Albuterol Sulfate [Ventolin] 2 puff IN QID PRN 10/07/16 Benztropine Mesylate [Cogentin] 1 mg PO D 10/07/16 Citalopram Hydrobromide [Celexa] 10 mg PO DAILY 10/07/16 Desmopressin Acetate [Ddavp] 0.1 mg PO DAILY 10/07/16 Divalproex Sodium [Depakote] 1,500 mg PO HS 10/07/16 Docusate Sodium [Colace] 100 mg PO DAILY PRN 10/07/16 Epinephrine [Epipen 2-Sonido] 0.3 mg SQ 1T PRN 10/07/16 Levothyroxine Sodium [Synthroid] 125 mcg PO DAILY 10/07/16 Medroxyprogesterone Acetate 150 mg IM Q3M 10/07/16 [Depo-Provera] Olanzapine [Zyprexa] 20 mg PO HS 10/07/16 Polyethylene Glycol 3350 [Miralax] 17 gm PO DAILY 10/07/16 Ranitidine HCl [Zantac] 150 mg PO DAILY 10/07/16 Albuterol Sulfate [Ventolin HFN] 2 puff INH PRN PRN 04/12/18 Fluticasone Propionate 110 Mcg 2 puff INH BID 04/12/18 [Flovent Hfa] Prazosin HCl [Minipress] 1 tab PO HS 04/12/18 Risperidone [Risperdal] 1 tab PO DAILY 04/12/18 Risperidone [Risperdal] 1 tab PO HS 04/12/18 - SOCIAL HX Smoking History: non-smoker - FAMILY HX Family History: No - VITAL SIGNS Vital Signs: Vital Signs Temp Pulse Resp BP Pulse Ox 108 H 20 126/87 86 L 04/12/18 15:15 04/12/18 15:15 04/12/18 15:15 04/12/18 15:15 - REVIEWED ASSESSMENTS Nursing Assessment Reviewed: Yes Vitals Reviewed: Yes Progress - Progress Progress: CXR: PA AND LATERAL CHEST HISTORY: low SpO2 COMPARISON: March 16, 2018 PA and Lateral Chest demonstrates a normal cardiomediastinal silhouette. Pulmonary vascularity is normal. Lungs are clear. IMPRESSION: NO ACTIVE DISEASE. ABG pH 7.42, pCO2 48, pO2 49, sO2 88.0, calculated TCO2 32.6, BE(B) 5.5, HCO2 28.9 A-a gradient 41.7 Duoneb no change in SpO2 27 yo female with mild MR almost always has SpO2 of 90% or less while sitting quietly per staff member. Pt was not wheezy on exam. Pt was given a Duoneb HFN with little or no change in SpO2 RA after tx. Abnormal A-a gradient by ABG, consider a-v shunt (also consider if venous sample). Pt sat's well on NC O2. Pt has f/u with pulmonology. Suspect etiology other than asthma. Pt has had no surgeries (which might give rise to shunt). Hardware Test Engineer will call millwright supervisor office to see about earlier appt. Pt is scheduled for 04-24-18. Pt should use NC O2 until f/u. General Adult Physical Exam - PHYSICAL EXAM GENERAL APPEARANCE: no distress EENT: pharynx normal NECK: normal inspection, supple RESPIRATORY: no resp distress, chest non-tender, breath sounds normal, other (possible limited excursion) CVS: reg rate & rhythm, tachycardia ABDOMEN: soft, no organomegaly, normal bowel sounds BACK: normal inspection, no CVA tenderness SKIN: warm/dry, normal color EXTREMITIES: non-tender, normal range of motion, no evidence of injury NEURO: motor nml, sensation nml, other (baseline mental status) Discharge Clincal Impression: Hypoxemia requiring supplemental oxygen, Hypoxemia of uncertain etiology Referrals: Shawn Mercado [Primary Care Provider] - Condition: Stable Disposition: 01 HOME, SELF-CARE Decision to Admit: NO Decision Time: 18:36
[2018-04-12 16:31] LABS: BASOPHILS % 0.6 (0.0-1.5); EOSINOPHILS % 2.2 % (0.0-6.8); MEAN CORPUSCULAR HEMOGLOBIN 29.9 pg (28.0-34.0); MONOCYTES % 7.8 % (0.0-11.0); NEUTROPHILS # 5.2 # k/uL (1.4-7.7)
[2018-04-12 17:06] LABS: eGFR (Non-African) > 60
[2018-04-12] MEDS ORDERED: IPRATROPIUM/ALBUTEROL SULFATE 3 ML AMPUL.NEB NEB ONE ×2 (17:16→17:30)
[2018-04-12 18:54] VITALS: BP 101/66
[2018-04-12 21:38] LABS: APPEARANCE,URINE CLEAR (CLEAR); COLOR,URINE AMBER (YELLOW); OCCULT BLOOD,URINE 1+ (NEGATIVE)
--- NOTE | 2018-04-13 05:31 | Diagnostic Imaging Report ---
NIMA OGLESBY [facility] [address] [facility] [address] [address] Report Submission Date: Apr 12, 2018 4:54:39 PM FITTER / WELDER Patient Study Name: ALONDRA HAIRSTON Date: Apr 12, 2018 4:28:53 PM FITTER / WELDER Modality Type: DX Gender: F Description: CHEST 2VIEW : 88 Institution: [facility] Physician: NIMA OGLESBY PA AND LATERAL CHEST HISTORY: Short of breath COMPARISON: March 16, 2018 PA and Lateral Chest dated April 12, 2018 demonstrates a normal cardiomediastinal silhouette. Pulmonary vascularity is normal. Lungs are clear. IMPRESSION: NO ACTIVE DISEASE. Electronically signed on Apr 12, 2018 4:54:39 PM FITTER / WELDER by: Bernie DEL CID
[2018-04-17 09:18] LABS: ABG BASE EXCESS 5.5 (-2 - +2); ABG PH 7.42 (7.35-7.45)
== END 2018-04-12 18:51 | disposition home or self-care (01) ==
LOC: ED 15:11
DX: R09.02 Hypoxemia (principal); Z99.81 Dependence on supplemental oxygen
CPT/HCPCS: 36415; 36600; 71046; 80053; 81002; 81025; 82803; 83880; 84484; 85025; 85379; 94640; 99284; 99285; S1016

== ENCOUNTER 2018-07-03 10:29 | Emergency (ER) | payer OTHER ==
[2018-07-03 11:00] VITALS: BP 156/91
--- NOTE | 2018-07-03 11:25 | Diagnostic Imaging Report ---
BRIAN RIOS ED [facility] [address] [facility] [address] [place], [place]. [address] Report Submission Date: Jul 03, 2018 11:16:30 AM CDT Patient Study Name: ALONDRA HAIRSTON Date: Jul 03, 2018 10:58:53 AM CDT Modality Type: DX Gender: F Description: CHEST 2VIEW : 88 Institution: [facility] Physician: BRIAN RIOS ED Examination: PA and lateral chest. History: Evaluate lung quinonez. Comparison exam: None provided. Findings: PA and lateral views of the chest demonstrates a poor inspiratory effort resulting in crowding of the cardiac and mediastinal silhouette. Crowding of the lung base interstitium. No blunting of the costophrenic margins. Osseous structures are appropriate for age. Impression: Poor inspiratory effort resulting in crowding of the cardiac silhouette and lung base interstitium. No effusion. Electronically signed on Jul 03, 2018 11:16:30 AM CDT by: Jacob DEL CID
--- NOTE | 2018-07-03 11:51 | ED Physician Documentation ---
General Adult - HISTORIAN Historian: patient, other (Caregiver) - HPI Stated Complaint: choked Chief Complaint: General Adult Additional Information: Patient is a 27-year-old female who presents to the ER with caregiver- Patient states that she was eating some nuts and choked- she vomited 3 times after. Caregiver states they brought her in to make sure that she did not aspirate. Patient is on home oxygen at 2L- she was 88% upon arrival to ER (home O2 tank was empty)- patient appears to be in no acute resp. distress- place on ER oxygen. Onset: minutes Timing: better Severity: mild Modifying Factors: pt states "I was eating peanuts too fast" Further Comments: no - ROS CONST: no problems EYES/ENT: none CVS/RESP: none, other (wears home Oxygen) GI/: vomiting (x 3 after choked on peanuts) MS/SKIN/LYMPH: none NEURO/PSYCH: denies: headache - PAST HX Past History: asthma, other (hypothyroid, PTSD, Mild MR, CAD, bipolar) Other History: seizure disorder Immunizations: UTD Allergies/Adverse Reactions: Allergies Allergy/AdvReac Type Severity Reaction Status Date / Time cefaclor [From Ceclor] Allergy Verified 07/03/18 11:00 Penicillins Allergy Verified 07/03/18 11:00 shellfish derived Allergy Verified 07/03/18 11:00 venom-honey bee Allergy Verified 07/03/18 11:00 [bee venom (honey bee)] Home Medications: Ambulatory Orders Medication Instructions Recorded Albuterol Sulfate [Ventolin] 2 puff IN QID PRN 10/07/16 Benztropine Mesylate [Cogentin] 1 mg PO BID 10/07/16 Citalopram Hydrobromide [Celexa] 10 mg PO DAILY 10/07/16 Desmopressin Acetate [Ddavp] 0.3 mg PO BID 10/07/16 Divalproex Sodium [Depakote] 1,500 mg PO HS 10/07/16 Docusate Sodium [Colace] 100 mg PO DAILY PRN 10/07/16 Epinephrine [Epipen 2-Sonido] 0.3 mg SQ 1T PRN 10/07/16 Levothyroxine Sodium [Synthroid] 125 mcg PO DAILY 10/07/16 Medroxyprogesterone Acetate 150 mg IM Q3M 10/07/16 [Depo-Provera] Olanzapine [Zyprexa] 20 mg PO HS 10/07/16 Ranitidine HCl [Zantac] 150 mg PO HS 10/07/16 Albuterol Sulfate [Ventolin HFN] 2 puff INH PRN PRN 04/12/18 Fluticasone Propionate 110 Mcg 2 puff INH QID PRN 04/12/18 [Flovent Hfa] Prazosin HCl [Minipress] 1 tab PO HS 04/12/18 Risperidone [Risperdal] 1 tab PO DAILY 04/12/18 Risperidone [Risperdal] 1 tab PO HS 04/12/18 Pnv No.95/Ferrous Fum/Folic AC 1 each PO DAILY 07/03/18 [ Vitamin Tablet] - SOCIAL HX Smoking History: non-smoker Alcohol Use: none Drug Use: none - FAMILY HX Family History: No - VITAL SIGNS Vital Signs: Vital Signs Temp Pulse Resp BP Pulse Ox 98.6 F 113 H 24 156/91 84 L 07/03/18 10:37 07/03/18 10:37 07/03/18 10:37 07/03/18 10:37 07/03/18 10:37 - REVIEWED ASSESSMENTS Nursing Assessment Reviewed: Yes Vitals Reviewed: Yes Progress - Progress Progress: Patient was able to drink water without difficulty- no choking or gagging ED Results Lab/Radiology - Radiology Radiology Impressions: Examination: PA and lateral chest. History: Evaluate lung quinonez. Comparison exam: None provided. Findings: PA and lateral views of the chest demonstrates a poor inspiratory effort resulting in crowding of the cardiac and mediastinal silhouette. Crowding of the lung base interstitium. No blunting of the costophrenic margins. Osseous structures are appropriate for age. Impression: Poor inspiratory effort resulting in crowding of the cardiac silhouette and lung base interstitium. No effusion. Electronically signed on Jul 03, 2018 11:16:30 AM CDT by: Jacob Jiménez - Orders Orders: ED Orders Category Date Time Status CHEST 2VIEW [RAD] Stat Exams 07/03/18 Completed General Adult Physical Exam - PHYSICAL EXAM GENERAL APPEARANCE: no distress EENT: eye inspection normal, ENT inspection normal, pharynx normal, ADWOA NECK: normal inspection, supple RESPIRATORY: no resp distress, breath sounds normal CVS: reg rate & rhythm, heart sounds normal, equal pulses ABDOMEN: soft, normal bowel sounds SKIN: warm/dry, cyanosis (lips (back on oxygen- color is back to normal)) EXTREMITIES: normal range of motion NEURO: oriented X3, CN's nml as tested, motor nml, sensation nml Discharge Clincal Impression: Choked on food Referrals: Shawn Mercado [Primary Care Provider] - 2 Days Additional Instructions: Refrain from eating any peanuts for a couple of days Be sure to chew food up well prior to swallowing Drink plenty of fluids Wear your oxygen as directed Follow up with PCP in 2 days if not feeling well or Return to ER Comments: Patient will be discharged once the "spare" portable oxygen arrives. Condition: Good Disposition: 01 HOME, SELF-CARE Decision to Admit: NO Decision Time: 11:48
== END 2018-07-03 12:33 | disposition home or self-care (01) ==
LOC: ED 10:29
DX: R09.89 Other specified symptoms and signs involving the circulatory and respiratory systems (principal); Z99.81 Dependence on supplemental oxygen
CPT/HCPCS: 71046; 99282; 99283